=== PATIENT | female | born 1990 | race Caucasian/White ===

== ENCOUNTER 2025-01-11 | Outpatient (REF) | payer OTHER, SELFPAY ==
--- OUTSIDE RECORDS SUMMARY | 2025-01-11 13:30 | XMS_ITS | Encounter Summary ---
Author Organization [facility] Address [address] [place] [address] Care Team Providers Care Emt/Dispatcher Name Role Phone Unavailable Primary Care Provider Unavailabl e Reason for Visit * ReasonCommentsPre-op Visit Encounter Details DateTypeDepartmentCare Team (Latest Contact Info)Xyhteplydzq18/15/2025 1:30 PM EDTProcedure Visit [facility] [address] [place] [address] Chinmay Means DO [address] [place] [address] DUB (dysfunctional uterine bleeding); Menorrhagia with irregular cycle; Pelvic pain in female Social History Tobacco UseTypesPacks/DayYears UsedDateSmoking Tobacco: Every DayCigarettes Smokeless Tobacco: NeverAlcohol UseStandard Drinks/WeekCommentsYes0 (1 standard drink = 0.6 oz pure alcohol)CommentsNoSex and Gender InformationValue Date RecordedSex Assigned at BirthNot on fileLegal ObsKglybf11/15/2023 10:13 PM EDTGender IdentityNot on fileSexual OrientationNot on filedocumented as of this encounter Last Filed Vital Signs Vital SignReadingTime TakenCommentsBlood Gpvraiiy696/8201/11/2025 1:51 PM EDT Pulse--Temperature--Respiratory Rate--Oxygen Saturation--Inhaled Oxygen Concentration--Haybep67 kg (167 lb 8 oz)01/11/2025 1:51 PM EDTHeight--Body Mass Index--documented in this encounter Progress Notes * Karen Huff LPN - 01/11/2025 1:30 PM EDTAssociated Order(s): Endometrial biopsy Post-Procedure Diagnose(s): DUB (dysfunctional uterine bleeding); Menorrhagia with irregular cycle Reason for Appointment: Patient ID: Alma Reveles is a 34 y.o. female who presents for No chief complaint on file. Patient presents today for a Endometrial Biopsy and Pre Op/Endometrial Biopsy appointment. Patient is scheduled to undergo Endometrial Ablation with Dorys on 02/10/[address] Means at [facility]. appointment. MEDICATIONS Current Outpatient Medications Medication Instructions ALPRAZolam (Xanax) 0.5 MG tablet TAKE 1 TABLET BY MOUTH 3 TIMES DAILY NEEDED FOR SLEEP OR ANXIETY. ferrous sulfate 325 (65 Fe) MG tablet 1 tablet, Daily phentermine (ADIPEX-P) 37.5 mg, Daily before breakfast ALLERGIES Allergies[1] PROBLEMS Active Ambulatory Problems Diagnosis Date Noted Neck pain 01/02/2023 DUB (dysfunctional uterine bleeding) 01/11/2025 Pelvic pain in female 01/11/2025 Menorrhagia with irregular cycle 01/11/2025 Resolved Ambulatory Problems Diagnosis Date Noted No Resolved Ambulatory Problems Past Medical History: Diagnosis Date Anxiety Chronic back pain HISTORY PAST MEDICAL HISTORY SOCIAL HISTORY Medical History[2] Social History Tobacco Use Smoking status: Every Day Current packs/day: 0.50 Types: Cigarettes Smokeless tobacco: Never Substance Use Topics Alcohol use: Yes Drug use: Never FAMILY HISTORY Family History[3] SURGICAL HISTORY Surgical History[4] REVIEW OF SYSTEMS Review of Systems: Review of Systems Constitutional: Negative. HENT: Negative. Eyes: Negative. Respiratory: Negative. Cardiovascular: Negative. Gastrointestinal: Negative. Genitourinary: Positive for menstrual problem and pelvic pain. Musculoskeletal: Negative. Skin: Negative. Neurological: Negative. All other systems reviewed and are negative. Hematological: Negative. Endocrine: Negative. Allergic/Immunologic: Negative. OBJECTIVE Objective: Physical Exam Constitutional: Appearance: Normal appearance. She is well-developed. Genitourinary: Vulva normal. Cardiovascular: Rate and Rhythm: Normal rate and regular rhythm. Pulmonary: Effort: Pulmonary effort is normal. Breath sounds: Normal breath sounds. Abdominal: General: Bowel sounds are normal. There is no distension. Palpations: Abdomen is soft. Tenderness: There is no abdominal tenderness. There is no guarding or rebound. Musculoskeletal: General: No swelling. Normal range of motion. Right lower leg: No edema. Left lower leg: No edema. Neurological: Mental Status: She is alert and oriented to person, place, and time. Skin: General: Skin is warm and dry. Psychiatric: Mood and Affect: Mood normal. Behavior: Behavior normal. Vitals and nursing note reviewed. Exam conducted with a proposal writer present. Vitals: There is no height or weight on file to calculate BMI. BP: No LMP recorded. ASSESSMENT & PLAN Assessment/Plan Encounter Diagnosis: ICD-10-CM 1. DUB (dysfunctional uterine bleeding) N93.8 2. Menorrhagia with irregular cycle N92.1 3. Pelvic pain in female R10.20 Endometrial biopsy Date/Time: 01/11/2025 2:11 PM Performed by: Chinmay Means DO Authorized by: Chinmay Means DO Consent: Consent obtained: written Consent given by: patient Risks discussed: bleeding Alternatives discussed: alternative treatment Patient agrees, verbalizes understanding, and wants to proceed: yes Indications: Indications: abnormal uterine bleeding Pre-procedure: Urine test: negative Procedure: A bimanual exam was performed: no Tenaculum used: yes A local block was performed: no Local anesthetic: none Findings: Cervix: normal Specimen collected: specimen collected and sent to pathology Patient tolerance: tolerated well, no immediate complications EMBX: Patient was placed in dorsal lithotomy position with feet in stirrups. A sterile speculum was placed into the vagina and the cervix was visualized. The cervix was grasped with a single tooth tenaculum. The endometrial pipette was placed through the cervix into the uterus, endometrial curettage was performed and sampling was obtained, endometrial curettings were placed in formalin, and single tooth tenaculum was removed. Excellent hemostasis was assured. All instruments were removed from vagina. Pre Op: Patient is doing well but has complaints of bleeding and pelvic pain. Patient has tried hormone therapy in the past but all attempts to subside patients issues have failed. I have discussed conservative management vs. surgical management with the patient in detail and patient desires surgical management at this time. Patient will undergo Endometrial Ablation with Dorys on 02/10/2025. Surgical consents were signed, mmc was reviewed, and patient is to proceed to [facility] OR. Follow Up: Patient is to follow up between 1-2 weeks post op to assess proper healing and recovery from procedure. Documented by Karen Huff LPN on behalf of: Chinmay Means DO [1] Allergies Allergen Reactions Diclofenac Hallucinations Ketorolac Naproxen Tramadol Unknown [2] Past Medical History: Diagnosis Date Anxiety Chronic back pain [3] Family History Problem Relation Name Age of Onset Throat cancer Mother Anxiety disorder Mother [4] Past Surgical History: Procedure Laterality Date CYST REMOVAL chest TUBAL LIGATION documented in this encounter Plan of Treatment DateTypeDepartmentCare Team (Latest Contact Info)Ylprqpcyhhk01/24/2025 1:30 PM ESTOffice Visit [facility] [address] [place] [address] Meagan Cedeno PA [address] [place] [address] NameTypePriorityAssociated DiagnosesOrder ScheduleTissue examPathology and CytologyRoutine DUB (dysfunctional uterine bleeding) Menorrhagia with irregular cycle Pelvic pain in female Ordered: 01/11/2025documented as of this encounter Procedures Procedure NamePriorityDate/TimeAssociated DiagnosisCommentsENDOMETRIAL BIOPSY Ykfvdld0201/11/2025 2:11 PM EDT DUB (dysfunctional uterine bleeding) Menorrhagia with irregular cycle POCT , ANBKFHcmezlz35/15/2025 2:01 PM EDT DUB (dysfunctional uterine bleeding) Menorrhagia with irregular cycle Pelvic pain in female documented in this encounter Results * Endometrial biopsy (01/11/2025 2:11 PM EDT) Ashwini Butcher LPN - 01/11/2025 2:11 PM EDT Ashwini Duncan LPN 01/11/2025 2:54 PM Endometrial biopsy Date/Time: 01/11/2025 2:11 PM Performed by: Chinmay Means DO Authorized by: Chinmay Means DO ?? Consent: ??Consent obtained: written ??Consent given by: patient ??Risks discussed: bleeding ??Alternatives discussed: alternative treatment ??Patient agrees, verbalizes understanding, and wants to proceed: yes ?? Indications: ??Indications: abnormal uterine bleeding ?? Pre-procedure: ??Urine test: negative ?? Procedure: ??A bimanual exam was performed: no ?Tenaculum used: yes ?A local block was performed: no ?Local anesthetic: none Findings: ??Cervix: normal ?Specimen collected: specimen collected and sent to pathology ?Patient tolerance: tolerated well, no immediate complications Authorizing ProviderResult TypeResult StatusChinmay ANGLINN CLINIC/BEDSIDE ORDERABLESFinal Result * POCT , urine manually resulted (01/11/2025 2:01 PM EDT)ComponentValue Ref RangeTest MethodAnalysis TimePerformed AtPathologist SignaturePreg Test, UrNegativeNegativeSpecimen (Source)Anatomical Location / LateralityCollection Method / VolumeCollection TimeReceived ZnntNeqft19/15/2025 2:01 PM EDT Narrative Authorizing ProviderResult TypeResult StatusChinmay Means DOPOINT OF CARE TEST ENTER/EDIT ORDERABLESFinal Result documented in this encounter Visit Diagnoses Diagnosis DUB (dysfunctional uterine bleeding) Other disorder of menstruation and other abnormal bleeding from female genital tract Menorrhagia with irregular cycle Pelvic pain in female Unspecified symptom associated with female genital organs documented in this encounter
--- OUTSIDE RECORDS SUMMARY | 2025-01-17 11:30 | XMS_ITS | Encounter Summary ---
Author Organization [facility] Address [address] [place] [address] Care Team Providers Care Paleobotanist Name Role Phone Unavailable Primary Care Provider Unavailabl e Encounter Details DateTypeDepartmentCare Team (Latest Contact Info)Svydfpjecsm36/14/2025External Result Encounter [facility] External Department Unsolicited Chinmay Means DO [address] [place], [place] [id number] Social History Tobacco UseTypesPacks/DayYears UsedDateSmoking Tobacco: Every DayCigarettes Smokeless Tobacco: NeverAlcohol UseStandard Drinks/WeekCommentsYes0 (1 standard drink = 0.6 oz pure alcohol)CommentsNoSex and Gender InformationValue Date RecordedSex Assigned at BirthNot on fileLegal GvtZhryzy22/15/2023 10:13 PM EDTGender IdentityNot on fileSexual OrientationNot on filedocumented as of this encounter Plan of Treatment DateTypeDebaptist health rehabilitation instituteCare Team (Latest Contact Info)Ugmdezyoapf85/24/2025 1:30 PM ESTOffice Visit [facility] [address] [place] [phone] Meagan Cedeno PA [address] [place] [address] documented as of this encounter Procedures Procedure NamePriorityDate/TimeAssociated DiagnosisComments DEHYDROEPIANDROSTERONE, PXcetbhy19/14/2025 9:16 AM EDT SERUM B HCG, 3RD I.S. ([facility])Pmxbxqc9201/10/2025 9:16 AM EDT CBC WITH AUTO BPXAWGUZAMWJSdlsmlu76/ 9:16 AM EDT DHEA BOPSIFFRrqnqxn05/14/2025 9:16 AM EDT ZJVVkzkhgr70/14/2025 9:16 AM EDT HEMOGLOBIN I7JLqsncxf06/14/2025 9:16 AM EDT DFSswwkxx18/14/2025 9:16 AM EDT DXNHegfmza61/14/2025 9:16 AM EDT documented in this encounter Results * DEHYDROEPIANDROSTERONE, S (01/10/2025 9:16 AM EDT)ComponentValueRef RangeTest MethodAnalysis TimePerformed AtPathologist SignatureDEHYDROEPIANDROSTERONE, S 3.4<10 ng/mLPROMEDICAComment: ADDITIONAL INFORMATION This test was developed and its performance characteristics determined by [facility] in a manner consistent with CLIA requirements. This test has not been cleared or approved by the U.S. Food and Drug Administration. Test Performed by: [place] [address] Twist Packer: Ever Francis Ph.D.; CLIA# [id number] Specimen (Source)Anatomical Location / LateralityCollection Method / Volume Collection TimeReceived Time01/10/2025 9:16 AM EDT1 1:14 PM EDT Narrative Authorizing ProviderResult TypeResult StatusCorey Clary DOLAB BLOOD ORDERABLES Final ResultPerforming OrganizationAddressCity/State/ZIP CodePhone Number [facility] * Hemoglobin A1c (01/10/2025 9:16 AM EDT)ComponentValueRef RangeTest Method Analysis TimePerformed AtPathologist SignatureHEMOGLOBIN A1C4.84.4 - 5.6 % [facility]: ?ADA Guidelines ?Result ?HgbA1c ? Normal : ? less than 5.7 % ? Prediabetes : ?5.7 % ??to 6.4 % Diabetes : > 6.4 % ??Use with caution in patients with abnormal hemoglobin variants as ??the half-life of red blood cells and in vivo glycation rates are ??affected. AVERAGE JOLVQCZ90fk/dLPROMEDICAComment: ?? PERFORMED AT [address],[place] [address] Specimen (Source)Anatomical Location / LateralityCollection Method / Volume Collection TimeReceived Time01/10/2025 9:16 AM EDT1 1:14 PM EDT Narrative Authorizing ProviderResult TypeResult StatusCorey Clary DOLAB BLOOD ORDERABLES Final ResultPerforming OrganizationAddressCity/State/[facility] CodePhone Number [facility] * Luteinizing hormone (01/10/2025 9:16 AM EDT)ComponentValueRef RangeTest Method Analysis TimePerformed AtPathologist SignatureLUTEINIZING HHACUKU75.0mIU/mL [facility]: NORMAL FEMALE Follicular ?? 2.1-10.9 ??mIU/mL Mid Cycle ??19.2-103 ?? mIU/mL Luteal ?? 1.2-12.9 ??mIU/mL [place] ??10.9-58.6 ??mIU/mL ?? PERFORMED AT [address],[place] [address] Specimen (Source)Anatomical Location / LateralityCollection Method / Volume Collection TimeReceived Time01/10/2025 9:16 AM EDT1 1:14 PM EDT Narrative Authorizing ProviderResult TypeResult StatusCorey Clary DOLAB BLOOD ORDERABLES Final ResultPerforming OrganizationAddressCity/State/ZIP CodePhone Number [facility] * Follicle stimulating hormone (01/10/2025 9:16 AM EDT)ComponentValueRef Range Test MethodAnalysis TimePerformed AtPathologist SignatureFOLLICLE STIM HORMONE 8.3mIU/mLPROMEDICAComment: NORMAL FEMALE: Luteal ??1.8-5.1 ?mIU/mL Follicular ??3.8-8.8 ?mIU/mL Mid Cycle ??4.5-22.5 ?? mIU/mL [place] ??16.7-113.6 ??mIU/mL ?? PERFORMED AT [address],[place] [address] Specimen (Source)Anatomical Location / LateralityCollection Method / Volume Collection TimeReceived Time01/10/2025 9:16 AM EDT1 1:14 PM EDT Narrative Authorizing ProviderResult TypeResult StatusCorey Clary DOLAB BLOOD ORDERABLES Final ResultPerforming OrganizationAddressCity/State/ZIP CodePhone Number [facility] * TSH (01/10/2025 9:16 AM EDT)ComponentValueRef RangeTest MethodAnalysis Time Performed AtPathologist SignatureFREE T41.100.61 - 1.60 ng/dLPROMEDICATSH1.26 0.49 - 4.67 uIU/mLPROMEDICAComment: ?? PERFORMED AT [address],[place] [address] Specimen (Source)Anatomical Location / LateralityCollection Method / Volume Collection TimeReceived Time01/10/2025 9:16 AM EDT1 1:14 PM EDT Narrative Authorizing ProviderResult TypeResult StatusCorey Clary DOLAB BLOOD ORDERABLES Final ResultPerforming OrganizationAddressCity/State/ZIP CodePhone Number [facility] * DHEA-sulfate (01/10/2025 9:16 AM EDT)ComponentValueRef RangeTest Method Analysis TimePerformed AtPathologist SignatureDHEA A12970 - 266 ug/dL[facility] Comment: ?? PERFORMED AT [facility] [address],[place] [address] Specimen (Source)Anatomical Location / LateralityCollection Method / Volume Collection TimeReceived Time01/10/2025 9:16 AM EDT1 1:14 PM EDT Narrative Authorizing ProviderResult TypeResult StatusCorey Clary DOLAB BLOOD ORDERABLES Final ResultPerforming OrganizationAddressCity/State/ZIP CodePhone Number [facility] * SERUM B HCG, 3RD I.S. ([facility]) (01/10/2025 9:16 AM EDT)ComponentValueRef RangeTest MethodAnalysis TimePerformed AtPathologist SignatureSERUM B HCG, 3RD I.S.<5mIU/mLPROMEDICAComment: WEEKS (SINCE LMP) ? MIU/mL 3 WEEKS ?5 - 50 4 WEEKS ?5 - 426 5 WEEKS ?18 - 7,340 6 WEEKS ?1,080 - 56,500 7-8 WEEKS ?7,650 - 229,000 9-12 WEEKS ? 25,700 - 288,000 13-16 WEEKS ?13,300 - 254,000 17-24 WEEKS ?4,060 - 165,400 25-40 WEEKS ?3,640 - 117,000 MALES AND NON- FEMALES - <5 MIU/mL This test has been FDA approved for use in only. ??Elevated levels are not necessarily diagnostic for trophoblastic or nontrophoblastic neoplasms. ?? PERFORMED AT [facility] [address],[place] [address] Specimen (Source)Anatomical Location / LateralityCollection Method / Volume Collection TimeReceived Time01/10/2025 9:16 AM EDT1 1:14 PM EDT Narrative Authorizing ProviderResult TypeResult StatusCorey Clary DOLAB BLOOD ORDERABLES Final ResultPerforming OrganizationAddressCity/State/ZIP CodePhone Number [facility] * (ABNORMAL) CBC auto differential (01/10/2025 9:16 AM EDT)ComponentValueRef RangeTest MethodAnalysis TimePerformed AtPathologist SignatureWHITE BLOOD CELL COUNT, WBC10.14 - 11 x10E9/LPROMEDICARED BLOOD CELL COUNT, RBC4.583.8 - 5.2 X10E12/BZRQQWBPURVZKHRIQGNJ79.911.7 - 15.5 g/iFWWBTZLWYDCOCHLVEKRT22.335 - 47 %[facility]ICAMEAN CELL VOLUME, MJH3638 - 100 fLPROMEDICAMEAN CELL HEMOGLOBIN, MCH 32.527 - 34 pgPROMEDICAMEAN CELL HEMOGLOGIN CONCENTRATION, MCHC34.432 - 36 g/dLPROMEDICARED CELL DISTRIBUTION WIDTH, RDW14.411.5 - 15 %[facility]ICAPLATELET [id number] - 450 X10E9/LPROMEDICAMEAN PLATELET VOLUME, MPV9.57 - 12 fL [facility]% BMWZTPMYZBC08.9%[facility]% WTBEICYLLUQ12.8%[facility]% MONOCYTES8.2% [facility]% EOSINOPHILS1.5%[facility]% BASOPHILS0.6%PROMEDICAABSOLUTE NEUTROPHIL 7.3(H)1.5 - 6.6 10*3/uLPROMEDICAABSOLUTE LYMPHOCYTE1.71.0 - 3.5 10*3/uL PR[facility]ICAABSOLUTE MONOCYTE0.80.0 - 0.9 10*3/uLPROMEDICAABSOLUTE EOSINOPHIL0.2 0.0 - 0.4 10*3/uLPROMEDICAABSOLUTE BASOPHIL0.10.0 - 0.2 10*3/uLPROMEDICA DIFFERENTIAL TYPEAUTOMATED DIFFERENTIALPROMEDICAComment: ?? PERFORMED AT [facility] [address],[place] [address] The copy-to physician of this order is ZAID Simms Specimen (Source)Anatomical Location / LateralityCollection Method / Volume Collection TimeReceived Time01/10/2025 9:16 AM EDT1 1:14 PM EDT Narrative Authorizing ProviderResult TypeResult StatusCorey Clary DOLAB BLOOD ORDERABLES Final ResultPerforming OrganizationAddressCity/State/ZIP CodePhone Number [facility] documented in this encounter Visit Diagnoses Not on filedocumented in this encounter
--- OUTSIDE RECORDS SUMMARY | 2025-01-17 11:30 | XMS_ITS | Encounter Summary ---
Author Organization [employer] [facility] tem Address [id number] [place] [address] Care Team Providers Care Roadway Designer Name Role Phone Eleazar Benavides MD Primary Care Provider [phone] Encounter Details DateTypeDepartmentCare Team (Latest Contact Info)Lymmtlftbih48/14/2025Travel Social History Tobacco UseTypesPacks/DayYears UsedDateSmoking Tobacco: Every DayCigarettes Smokeless Tobacco: NeverAlcohol UseStandard Drinks/WeekCommentsNo0 (1 standard drink = 0.6 oz pure alcohol)AUDIT-CAnswerDate RecordedFrequency of Alcohol RwtfuodedfyRpjjn20/30/2020Average Number of DrinksNot on file12/28/2019Frequency of Binge DrinkingNot on file12/28/2019ChildcareAnswerDate RecordedChildcare Mxkjnnn8909/08/2018EmploymentAnswerDate ZltndpomSdyyxyzldlZhzhuao73/12/2019Hunger ScreeningAnswerDate RecordedWithin the past 12 months we worried whether our food would run out before we got money to buy more.Never True03/21/2024Within the past 12 months the food we bought just didn't last and we didn't have money to get more.Never True4Purpose - LifeAnswerDate RecordedPurpose and direction in zgwpTcnjnoz26/15/2021CommentsNoSex and Gender Information ValueDate RecordedSex Assigned at BirthNot on fileLegal FydNkbyyf87/06/2015 11:38 AM EDTGender IdentityNot on fileSexual OrientationNot on filedocumented as of this encounter Plan of Treatment Not on file documented as of this encounter Visit Diagnoses Not on filedocumented in this encounter Care Teams Team MemberRelationshipSpecialtyStart DateEnd Date Eleazar Benavides MD [address] [place] [address] PCP - GeneralFamily Zleqsqab35/23/24documented as of this encounter
--- OUTSIDE RECORDS SUMMARY | 2025-01-17 11:30 | XMS_ITS | Encounter Summary ---
Author Organization [facility] Address [address] [place] [address] Care Team Providers Care Clinical Nursing Manager Name Role Phone Unavailable Primary Care Provider Unavailabl e Encounter Details DateTypeDepartmentCare Team (Latest Contact Info)Zunelayjxny05/15/2025Telephone [facility] [address] [place] [phone] Chinmay Means DO [address] [place], [place] [id number] Social History Tobacco UseTypesPacks/DayYears UsedDateSmoking Tobacco: Every DayCigarettes Smokeless Tobacco: NeverAlcohol UseStandard Drinks/WeekCommentsYes0 (1 standard drink = 0.6 oz pure alcohol)CommentsNoSex and Gender InformationValue Date RecordedSex Assigned at BirthNot on fileLegal XmrErycfd91/15/2023 10:13 PM EDTGender IdentityNot on fileSexual OrientationNot on filedocumented as of this encounter Miscellaneous Notes * Telephone Encounter - Sita Bowman LPN - 01/11/2025 11:15 AM EDT I was calling to see if you guys got my blood results because if not, I was going to reschedule my appointment. I have one today at 130. Patient was called left detailed message to make aware that we do have her labs that she had done at [facility] so we will see at her appointment or if she needs to change to call the office. documented in this encounter Plan of Treatment DateTypeDepartmentCare Team (Latest Contact Info)Voneqjxurdz34/24/2025 1:30 PM ESTOffice Visit [facility] [address] [place] [phone] Meagan Cedeno PA [address] [place] [address] documented as of this encounter Visit Diagnoses Not on filedocumented in this encounter
--- OUTSIDE RECORDS SUMMARY | 2025-01-17 11:30 | XMS_ITS | Encounter Summary ---
Author Organization [facility] Address [address], [address] [place] [address] Care Team Providers Care System Administration Advisor Name Role Phone Boni Aguilar APRN - COMPUTER PROCESSING SCHEDULER Primary Care Provider Reason for Visit * ReasonOnset DateCommentsMedication Svzvgf7901/09/2025 Encounter Details DateTypeDepartmentCare Team (Latest Contact Info)Pkwpkdqtyoh02/13/2025[facility] [place] [address] Boni Aguilar, ROLLED GLASS CROSSCUTTER [facility] [place], [place] [id number] Medication Refill Social History Tobacco UseTypesPacks/DayYears UsedDateSmoking Tobacco: Every LifSobifmhhjl01 Smokeless Tobacco: Never Comments:Patient has decreas ed smoking usage Alcohol UseStandard Drinks/WeekCommentsNot Currently0 (1 standard drink = 0.6 oz pure alcohol)[facility] UtilitiesAnswerDate RecordedIn the past 12 months has the electric, gas, oil, or water company threatened to shut off services in your home?No05/17/2024Overall Financial Resource Strain (CARDIA)AnswerDate Recorded How hard is it for you to pay for the very basics like food, housing, medical care, and heating?Not hard at all05/04/2023HQ-2AnswerDate RecordedPHQ-9 Total Qkayx690Hunger Vital SignAnswerDate RecordedWithin the past 12 months, you worried that your food would run out before you got the money to buymore. Never true05/17/2024Within the past 12 months, the food you bought just didn't last and you didn't have money to get more.Never true05/17/2024PRAPARE - TransportationAnswerDate RecordedIn the past 12 months, has lack of transportation kept you from medical appointments or from getting medications?No 05/17/2024In the past 12 months, has lack of transportation kept you from meetings, work, or from getting things needed for daily living?No05/17/2024 Housing Stability Vital SignAnswerDate RecordedUnable to Pay for Housing in the Last YearNot on file05/04/2023Number of Places Lived in the Last YearNot on file 05/04/2023In the last 12 months, was there a time when you did not have a steady place to sleep or slept in [place] (including now)?No05/04/2023Housing Stability Vital SignAnswerDate RecordedIn the last 12 months, was there a time when you were not able to pay the mortgage or rent on time?No05/17/2024In the past 12 months, how many times have you moved where you were living? At any time in the past 12 months, were you homeless or living in a [place] (including now)?No05/17/2024Food InsecurityAnswerDate RecordedWithin the past 12 months, you worried that your food would run out before you got the money to buy more.Within the past 12 months, the food you bought just didn't last and you didn't have money to get more.CommentsNoSex and Gender InformationValueDate RecordedSex Assigned at BirthNot on fileLegal Sex Sslkdb8105/09/2012 4:09 PM ESTGender IdentityNot on fileSexual OrientationNot on filedocumented as of this encounter Plan of Treatment Not on file documented as of this encounter Visit Diagnoses Diagnosis Medication management Encounter for other specified aftercare Anxiety Anxiety state, unspecified Chronic bilateral low back pain without sciatica documented in this encounter Care Teams Team MemberRelationshipSpecialtyStart DateEnd Date Boni Aguilar, ROLLED GLASS CROSSCUTTER - COMPUTER PROCESSING SCHEDULER PCP - General05/19/18documented as of this encounter
--- OUTSIDE RECORDS SUMMARY | 2025-01-17 11:30 | XMS_ITS | Clinical Summary ---
Author Organization [facility] Address [address] [place] [address] Care Team Providers Care Epitaxial Reactor Technician Name Role Phone Unavailable Primary Care Provider Unavailabl e Allergies Active AllergyReactionsCriticalityNoted DateCommentsDiclofenacHallucinations 05/17/20249041Uegrmkyho14/09/7406Utfdfsoq96/19/2171LxirqjliPacjvlu75/01/2011 Medications MedicationSigDispense QuantityRefillsLast FilledStart DateEnd DateStatus ALPRAZolam (Xanax) 0.5 MG tablet TAKE 1 TABLET BY MOUTH 3 TIMES DAILY NEEDED FOR SLEEP OR ANXIETY.Active ferrous sulfate 325 (65 Fe) MG tablet Take 1 tablet by mouth Daily5Active phentermine (Adipex-P) 37.5 MG tablet Take 37.5 mg by mouth in the morning. Take before meals.5Active Active Problems ProblemNoted DateDiagnosed DateDUB (dysfunctional uterine bleeding)01/11/2025 Pelvic pain in wjjdtz1801/11/2025Menorrhagia with irregular cycle01/11/2025Neck pain01/02/2023 Encounters DateTypeDepartmentCare TnsdPqjvbwsegmn83/15/2025 1:30 PM EDTProcedure Visit [facility] [address] [place] [address] [place] [address] Chinmay Means DO DUB (dysfunctional uterine bleeding); Menorrhagia with irregular cycle; Pelvic pain in jqvwrz5001/11/2025Telephone [facility] [address] [place] [address] [place] [address] Chinmay Means DO 01/10/2025External Result Encounter [facility] Unsolicited Chinmay Means DO 12/06/2024 10:30 AM EDTConsult [facility] [address] [place] [address] Chinmay Means DO DUB (dysfunctional uterine bleeding); Dysmenorrhea; Menorrhagia with irregular cycle; PCOS (polycystic ovarian syndrome)12/06/2024amboo flowsheet [facility] [address] [place] [address] Chinmay Means DO 10/19/2024Orders Only [facility] [address] [place] [address] Mila Arnold CNM DUB (dysfunctional uterine bleeding) (Primary Dx)10/17/2024Results Follow-Up [facility] [address] [place] [address] Jacinta Monge MA THINPREP IMAGING PAP AND HPV DNA REFLEX HPV 16,18, US pelvis transvaginalfrom Last 3 Months Family History Medical HistoryRelationNameCommentsAnxiety disorderMotherThroat cancerMother RelationNameStatusCommentsFatherAliveMotherAlive Social History Tobacco UseTypesPacks/DayYears UsedDateSmoking Tobacco: Every DayCigarettes Smokeless Tobacco: Never Tobacco Cessation:Ready to Q uit: Not Asked; Counseling Given: Not Answered Alcohol UseStandard Drinks/WeekCommentsYes0 (1 standard drink = 0.6 oz pure alcohol)CommentsNoSex and Gender InformationValueDate RecordedSex Assigned at BirthNot on fileLegal ZxgQmwwrg54/15/2023 10:13 PM EDTGender IdentityNot on fileSexual OrientationNot on file Last Filed Vital Signs Vital SignReadingTime TakenCommentsBlood Dxitssjh554/8201/11/2025 1:51 PM EDT Pulse--Temperature--Respiratory Rate--Oxygen Saturation--Inhaled Oxygen Concentration--Ppshmh93 kg (167 lb 8 oz)01/11/2025 1:51 PM EDTHeight--Body Mass Index-- Plan of Treatment DateTypeDepartmentCare Team (Latest Contact Info)Whpmmqolmlf39/24/2025 1:30 PM ESTOffice Visit [facility] [address] [place] [address] Meagan Cedeno PA [address] [place] [address] Procedures Procedure NamePriorityDate/TimeAssociated DiagnosisCommentsENDOMETRIAL BIOPSY Lurdplx0001/11/2025 2:11 PM EDT DUB (dysfunctional uterine bleeding) Menorrhagia with irregular cycle POCT , OZIKROfpzkir36/15/2025 2:01 PM EDT DUB (dysfunctional uterine bleeding) Menorrhagia with irregular cycle Pelvic pain in female DEHYDROEPIANDROSTERONE, CQionwba99/14/2025 9:16 AM EDT HEMOGLOBIN C2BSimkzjw30/14/2025 9:16 AM EDT NZGghzdcv44/14/2025 9:16 AM EDT WKYElnmnfz97/14/2025 9:16 AM EDT QKDMnbntxk21/14/2025 9:16 AM EDT DHEA DIVRYGNEnfmncm33/14/2025 9:16 AM EDT SERUM B HCG, 3RD I.S. ([facility])Debctqc8901/10/2025 9:16 AM EDT CBC WITH AUTO CSUANKRWVQYVFjqnefc13/14/2025 9:16 AM EDT from Last 3 Months Results * Endometrial biopsy (01/11/2025 2:11 PM EDT) Ashwini Butcher LPN - 01/11/2025 2:11 PM EDT Ashwini Duncan LPN 01/11/2025 2:54 PM Endometrial biopsy Date/Time: 01/11/2025 2:11 PM Performed by: Chinmay Means DO Authorized by: Chinmya Means DO ?? Consent: ??Consent obtained: written [...] no immediate complications Authorizing ProviderResult TypeResult StatusChinmay Means DOIN CLINIC/BEDSIDE ORDERABLESFinal Result * POCT , urine manually resulted (01/11/2025 2:01 PM EDT)ComponentValue Ref RangeTest MethodAnalysis TimePerformed AtPathologist SignaturePreg Test, UrNegativeNegativeSpecimen (Source)Anatomical Location / LateralityCollection Method / VolumeCollection TimeReceived KhdyJrpor05/15/2025 2:01 PM EDT Narrative Authorizing ProviderResult TypeResult StatusChinmay Means DOPOINT OF CARE TEST ENTER/EDIT ORDERABLESFinal Result * DEHYDROEPIANDROSTERONE, S (01/10/2025 9:16 AM EDT)ComponentValueRef RangeTest MethodAnalysis TimePerformed AtPathologist SignatureDEHYDROEPIANDROSTERONE, S 3.4<10 ng/mLPROMEDICAComment: ADDITIONAL INFORMATION This test was developed and its performance characteristics determined by [facility] in a manner consistent with CLIA requirements. This test has not been cleared or approved by the U.S. Food and Drug Administration. Test Performed by: [facility] - [address] [address] [employer] Operator: Ever Francis Ph.D.; CLIA# [id number] Specimen (Source)Anatomical Location / LateralityCollection Method / Volume Collection TimeReceived Time01/10/2025 9:16 AM EDT1 1:14 PM EDT Narrative Authorizing ProviderResult TypeResult StatusCorey Clary HEARD BLOOD ORDERABLES Final ResultPerforming OrganizationAddressCity/State/ZIP CodePhone Number [...] trophoblastic or nontrophoblastic neoplasms. ?? PERFORMED AT [facility] [address],[place] [address] Specimen (Source)Anatomical Location / LateralityCollection Method / Volume Collection TimeReceived Time01/10/2025 9:16 AM EDT1 1:14 PM EDT Narrative Authorizing ProviderResult TypeResult StatusCorey Clary HEARD BLOOD ORDERABLES Final ResultPerforming OrganizationAddressCity/State/ZIP CodePhone Number [facility] * (ABNORMAL) CBC auto differential (01/10/2025 9:16 AM EDT)ComponentValueRef RangeTest MethodAnalysis TimePerformed AtPathologist SignatureWHITE BLOOD CELL COUNT, WBC10.14 - 11 x10E9/LPROMEDICARED BLOOD CELL COUNT, RBC4.583.8 - 5.2 X10E12/KIEDZRLULWGZPPGTUIRW45.911.7 - 15.5 g/tMDJZWSNQPKCOGKJEUMUS36.335 - 47 %PROMEDICAMEAN CELL VOLUME, SWO5718 - 100 fLPROMEDICAMEAN CELL HEMOGLOBIN, MCH 32.527 - 34 pgPROMEDICAMEAN CELL HEMOGLOGIN CONCENTRATION, MCHC34.432 - 36 g/dLPROMEDICARED CELL DISTRIBUTION WIDTH, RDW14.411.5 - 15 %PROMEDICAPLATELET KUNWX360945 - 450 X10E9/LPROMEDICAMEAN PLATELET VOLUME, MPV9.57 - 12 fL [facility]% YSBOILOSTHX81.9%[facility]% TWCEYJMXJBE02.8%[facility]% MONOCYTES8.2% [facility]% EOSINOPHILS1.5%[facility]% BASOPHILS0.6%PROMEDICAABSOLUTE NEUTROPHIL 7.3(H)1.5 - 6.6 10*3/uLPROMEDICAABSOLUTE LYMPHOCYTE1.71.0 - 3.5 10*3/uL [facility]AABSOLUTE MONOCYTE0.80.0 - 0.9 10*3/uLPROMEDICAABSOLUTE EOSINOPHIL0.2 0.0 - 0.4 10*3/uLPROMEDICAABSOLUTE BASOPHIL0.10.0 - 0.2 10*3/uLPROMEDICA DIFFERENTIAL TYPEAUTOMATED DIFFERENTIALPROMEDICAComment: ?? PERFORMED AT [facility] [address],[place] [address] The copy-to physician of this order is ZAID Simms Specimen (Source)Anatomical Location / LateralityCollection Method / Volume Collection TimeReceived Time01/10/2025 9:16 AM EDT1 1:14 PM EDT Narrative Authorizing ProviderResult TypeResult StatusCorey Clary DOLAB BLOOD ORDERABLES Final ResultPerforming OrganizationAddressCity/State/ZIP CodePhone Number [facility] * DHEA-sulfate (01/10/2025 9:16 AM EDT)ComponentValueRef RangeTest Method Analysis TimePerformed AtPathologist SignatureDHEA [id number] - 266 ug/dL[facility]ICA Comment: ?? PERFORMED AT [address],[place] [address] Specimen (Source)Anatomical Location / LateralityCollection Method / Volume Collection TimeReceived Time01/10/2025 9:16 AM EDT1 1:14 PM EDT Narrative Authorizing ProviderResult TypeResult StatusCorey Clary DOLAB BLOOD ORDERABLES Final ResultPerforming OrganizationAddressCity/State/ZIP CodePhone Number [facility] * TSH (01/10/2025 9:16 AM EDT)ComponentValueRef RangeTest MethodAnalysis Time Performed AtPathologist SignatureFREE T41.100.61 - 1.60 ng/dLPROMEDICATSH1.26 0.49 - 4.67 uIU/mLPROMEDICAComment: ?? PERFORMED AT [address],[place] [address] Specimen (Source)Anatomical Location / LateralityCollection Method / [...] in vivo glycation rates are ??affected. AVERAGE SYZNBJQ31bv/dLPROMEDICAComment: ?? [address]FORMED [address],[place] [address] Specimen (Source)Anatomical Location / LateralityCollection Method / Volume Collection TimeReceived Time01/10/2025 9:16 AM EDT1 1:14 PM EDT Narrative Authorizing ProviderResult TypeResult StatusCorey Clary DOLAB BLOOD ORDERABLES Final ResultPerforming OrganizationAddressCity/State/ZIP CodePhone Number [facility] * Luteinizing hormone (01/10/2025 9:16 AM EDT)ComponentValueRef RangeTest Method Analysis TimePerformed AtPathologist SignatureLUTEINIZING LJGXXDY10.0mIU/mL [facility]ICAComment: NORMAL FEMALE Follicular ?? 2.1-10.9 ??mIU/mL Mid Cycle ??19.2-103 ?? mIU/mL Luteal ?? 1.2-12.9 ??mIU/mL Post Gabby ??10.9-58.6 ??mIU/mL ?? PERFORMED AT [place] [address],[place] [address] Specimen (Source)Anatomical Location / LateralityCollection Method / Volume Collection TimeReceived Time01/10/2025 9:16 AM EDT1 1:14 PM EDT Narrative Authorizing ProviderResult TypeResult StatusCorey Clary DOLAB BLOOD ORDERABLES Final ResultPerforming OrganizationAddressCity/State/ZIP CodePhone Number [facility] * Follicle stimulating hormone (01/10/2025 9:16 AM EDT)ComponentValueRef Range Test MethodAnalysis TimePerformed AtPathologist SignatureFOLLICLE STIM HORMONE 8.3mIU/mLPROMEDICAComment: NORMAL FEMALE: Luteal ??1.8-5.1 ?mIU/mL Follicular ??3.8-8.8 ?mIU/mL Mid Cycle ??4.5-22.5 ?? mIU/mL Post Gabby ??16.7-113.6 ??mIU/mL ?? PERFORMED AT [facility] [address],[place] [address] Specimen (Source)Anatomical Location / LateralityCollection Method / Volume Collection TimeReceived Time01/10/2025 9:16 AM EDT1 1:14 PM EDT Narrative Authorizing ProviderResult TypeResult StatusCorey Clary DOLAB BLOOD ORDERABLES Final ResultPerforming OrganizationAddressCity/State/ZIP CodePhone Number [facility] from Last 3 Months Insurance
--- OUTSIDE RECORDS SUMMARY | 2025-01-17 11:30 | XMS_ITS | Clinical Summary ---
Author Organization [facility] Address [address] [facility], [address] [place] [address] Care Team Providers Care Tobacco Hanger Name Role Phone Boni Aguilar METAL MOULDER - MICROBIOLOGY LAB TECHNICIAN Primary Care Provider Allergies Active AllergyReactionsCriticalityNoted DateCommentsDiclofenacHallucinations 05/17/20240428Yvgnsritf98/09/1147Qtvvotju77/19/2015TramadolOther (See Comments) 03/30/2010 Medications MedicationSigDispense QuantityRefillsLast FilledStart DateEnd DateStatus varenicline (CHANTIX) 1 MG tablet Indications:Cigarette nicotine dependence without complicationTake 1 tablet by mouth 2 times daily 60 tablet 504Active polyethylene glycol (MIRALAX) 17 GM/SCOOP powder Indications:Constipation, unspecified constipation typeTake 17 g by mouth daily 510 g 4Active albuterol sulfate HFA (PROVENTIL;VENTOLIN;PROAIR) 108 (90 Base) MCG/ACT inhaler Inhale 2 puffs into the lungs every 6 hours as needed for Mbootszg87/04/2024 Active oxyBUTYnin (DITROPAN-XL) 5 MG extended release tablet Indications:Urinary urgencyTAKE 1 TABLET BY MOUTH EVERY DAY 30 tablet 5Active albuterol (PROVENTIL) (2.5 MG/3ML) 0.083% nebulizer solution Indications:Bronchitis,WheezeINAHEL 3 MLS BY NEBULIZATION EVERY 4 HOURS NEEDED FOR WHEEZING OR SHORTNESS OF BREATH 300 mL 5Active ferrous sulfate (IRON 325) 325 (65 Fe) MG tablet TAKE 1 TABLET BY MOUTH EVERY DAY 30 tablet 5Active amitriptyline (ELAVIL) 25 MG tablet Indications:Medication managementTAKE 1 TABLET BY MOUTH EVERY DAY AT BEDTIME NEEDED FOR SLEEP 30 tablet 5Active omeprazole (PRILOSEC) 40 MG delayed release capsule Indications:Gastroesophageal reflux disease without esophagitisTAKE 1 CAPSULE BY MOUTH EVERY DAY 30 capsule 5Active phentermine (ADIPEX-P) 37.5 MG tablet Indications:Overweight (BMI 25.0-29.9)TAKE 1 TABLET BY MOUTH EVERY MORNING FOR 30 DAYS. MAX DAILY AMOUNT: 37.5 MG 30 tablet tive ALPRAZolam (XANAX) 1 MG tablet Indications:Medication management,AnxietyTake 1 tablet by mouth 3 times daily as needed for Sleep for up to 30 days. Max Daily Amount: 3 mg 90 tablet tive acetaminophen (TYLENOL) 500 MG tablet Indications:Flank painTake 1 tablet by mouth 4 times daily as needed for Pain 360 tablet iscontinued(Side effects) phentermine (ADIPEX-P) 37.5 MG tablet Indications:Overweight (BMI 25.0-29.9)Take 1 tablet by mouth every morning (before breakfast) for 30 days. Max Daily Amount: 37.5 mg 30 tablet Discontinued HYDROcodone-acetaminophen (NORCO) 5-325 MG per tablet Indications:Chronic bilateral low back pain without sciaticaTake 1 tablet by mouth 2 times daily as needed for Pain for up to 7 days. Intended supply: 7 days. Take lowest dose possible to manage pain Max Daily Amount: 2 tablets 14 tablet /Discontinued(REORDER) ALPRAZolam (XANAX) 1 MG tablet Indications:Medication management,AnxietyTAKE 1 TABLET BY MOUTH THREE TIMES A DAY NEEDED FOR ANXIETY FOR UP TO 30 DAYS 90 tablet /Discontinued(REORDER) HYDROcodone-acetaminophen (NORCO) 5-325 MG per tablet Indications:Chronic bilateral low back pain without sciaticaTake 1 tablet by mouth 2 times daily as needed for Pain for up to 7 days. Intended supply: 7 days. Take lowest dose possible to manage pain Max Daily Amount: 2 tablets 14 tablet /Discontinued(REORDER) HYDROcodone-acetaminophen (NORCO) 5-325 MG per tablet Indications:Chronic bilateral low back pain without sciaticaTake 1 tablet by mouth 2 times daily as needed for Pain for up to 7 days. Intended supply: 7 days. Take lowest dose possible to manage pain Max Daily Amount: 2 tablets 14 tablet /08/2024Discontinued(REORDER) HYDROcodone-acetaminophen (NORCO) 5-325 MG per tablet Indications:Chronic bilateral low back pain without sciaticaTake 1 tablet by mouth 2 times daily as needed for Pain for up to 7 days. Intended supply: 7 days. Take lowest dose possible to manage pain Max Daily Amount: 2 tablets 14 tablet /Discontinued(REORDER) HYDROcodone-acetaminophen (NORCO) 5-325 MG per tablet Indications:Chronic bilateral low back pain without sciaticaTake 1 tablet by mouth 2 times daily as needed for Pain for up to 7 days. Intended supply: 7 days. Take lowest dose possible to manage pain Max Daily Amount: 2 tablets 14 tablet Expired Active Problems ProblemNoted DateDiagnosed DatePersonal history of diseases of the blood and blood-forming organs and certain disorders involving the immune mechanism 07/27/2023Increased frequency of hguiqxttk86/22/2024Neck pain01/02/2023Nicotine dependence, cigarettes, origwckrushrs27/23/2018Bilateral low back pain without yagtovaq91/21/2015Gastroesophageal reflux disease without xjakhefmqgj38/21/2015 Restless leg egwyuoka87/21/2015nxiety Resolved Problems ProblemNoted DateDiagnosed DateResolved DateWeight loss Encounters DateTypeDepartmentCare StwsDgvpvrcpvwx46/15/2025Results Follow-Up [facility] [address] [place] [address] Zulma Young MD 01/11/2025bstract [facility] [address] [facility] [address] [place] [address] Carmina Bell MA Overweight (BMI 25.0-29.9); Insomnia, unspecified type; History of anemia; Medication management; Anxiety; Chronic bilateral low back pain without sciatica; Lipid mqatgxfxy93/13/2025[facility] [address] [place] [address] Boni Aguilar, METAL MOULDER - MICROBIOLOGY LAB TECHNICIAN Medication Qrhcwn1801/09/2025[facility] [address] [place] [address] Boni Aguilar, METAL MOULDER - MICROBIOLOGY LAB TECHNICIAN Medication Cincic7001/02/2025[facility] [address] [place] [address] Boni Aguilar, METAL MOULDER - MICROBIOLOGY LAB TECHNICIAN Medication Peeshc2012/26/2024[facility] [address] [place] [address] Boni Aguilar, METAL MOULDER - MICROBIOLOGY LAB TECHNICIAN Medication Fdcaat6912/19/2024[facility] [address] [place] [address] Boni Aguilar, METAL MOULDER - MICROBIOLOGY LAB TECHNICIAN Medication Adrmdo3612/12/2024[facility] [address] [place] [address] Boni Aguilar, METAL MOULDER - MICROBIOLOGY LAB TECHNICIAN Medication Fryghg2112/12/2024[facility] [address] [place] [address] Boni Aguilar, METAL MOULDER - MICROBIOLOGY LAB TECHNICIAN Medication Bejvbl4212/11/2024[facility] [address] [place] [address] Boni Aguilar, METAL MOULDER - MICROBIOLOGY LAB TECHNICIAN Medication Pfqrdo2512/06/2024[facility] [address] [place] [address] Boni Aguilar, METAL MOULDER - MICROBIOLOGY LAB TECHNICIAN Medication Ntfmis9011/29/2024[facility] [address] [place] [address] Boni Aguilar, METAL MOULDER - MICROBIOLOGY LAB TECHNICIAN Medication Ibalak7711/21/[address] [address] Boni Aguilar, METAL MOULDER - MICROBIOLOGY LAB TECHNICIAN Medication Rikqae5711/15/2024 10:30 AM EDTOffice Visit [facility] [address] [place] [address] Boni Aguilar, METAL MOULDER - MICROBIOLOGY LAB TECHNICIAN Chronic bilateral low back pain without sciatica (Primary Dx); Medication management; Anxiety; Overweight (BMI 25.0-29.9)11/12/2024[facility] [address] [place] [address] Boni Aguilar, METAL MOULDER - MICROBIOLOGY LAB TECHNICIAN Medication Zbkdgb9711/08/[address] [address] Boni Aguilar, METAL MOULDER - MICROBIOLOGY LAB TECHNICIAN Medication Btfzft3911/07/20[address] [address] Ramesh Rodriguez MD Medication Fjoknp4611/07/2024[facility] [address] [place] [address] Boni Aguilar, METAL MOULDER - MICROBIOLOGY LAB TECHNICIAN Medication Xlmpuy8310/21/[address] [address] Boni Aguilar, METAL MOULDER - MICROBIOLOGY LAB TECHNICIAN Medication Refillfrom Last 3 Months Immunizations ImmunizationAdministration DatesNext DuePneumococcal, PPSV23, PNEUMOVAX 23, (age 2y+), SC/IM, 0.5mL09/19/2016 Family History Medical HistoryRelationNameCommentsArthritisFatherOtherMaternal Grandmother anxietyThyroid DiseaseMaternal GrandmotherCancerMotherThroatOtherMotherrestless leg, anxietyOtherPaternal GrandmotheranxietyRelationNameStatusCommentsFather AliveMaternal GrandmotherMotherAlivePaternal Grandmother Social History Tobacco UseTypesPacks/DayYears UsedDateSmoking Tobacco: Every ShwOhocrkzzox01 Smokeless Tobacco: Never Tobacco Cessation:Ready to Q uit: Yes; Counseling Given: Yes Comments:Patient has decreased smoking usage Alcohol UseStandard Drinks/WeekCommentsNot Currently0 (1 standard drink = 0.6 oz pure alcohol)[facility] UtilitiesAnswerDate RecordedIn the past 12 months has the electric, gas, oil, or water company threatened to shut off services in your home?No05/17/2024Overall Financial Resource Strain (CARDIA)AnswerDate Recorded How hard is it for you to pay for the very basics like food, housing, medical care, and heating?Not hard at all05/04/2023HQ-2AnswerDate RecordedPHQ-9 Total Znejw619Hunger Vital SignAnswerDate RecordedWithin the past 12 months, [...] steady place to sleep or slept in ashelter (including now)?No05/04/2023Housing Stability Vital SignAnswerDate RecordedIn the last 12 months, was there a time when you were not able to pay the mortgage or rent on time?No05/17/2024In the past 12 months, how many times have you moved where you were living? At any time in the past 12 months, were you homeless or living in a prison (including now)?05/17/2024Food InsecurityAnswerDate RecordedWithin the past 12 months, you worried that your food would run out before you got the money to buy more.Within the past 12 months, the food you bought just didn't last and you didn't have money to get more.CommentsNoSex and Gender InformationValueDate RecordedSex Assigned at BirthNot on fileLegal Sex Kfwweo8805/09/2012 4:09 PM ESTGender IdentityNot on fileSexual OrientationNot on file Last Filed Vital Signs Vital SignReadingTime TakenCommentsBlood Blwkvbjb948/7808 10:34 AM EDT Pmtbm7044 11:07 AM QKSXnwsbsbczqn25.8 ??C (98.2 ??F)09/15/2017 12:33 PM EDTRespiratory Uuud920209/15/2017 12:33 PM EDTOxygen Zpbwwkbtqp80%11/15/2024 10:34 AM EDTInhaled Oxygen Concentration--Teidff81.3 kg (168 lb 4.8 oz)11/15/2024 10:34 AM RKZBphkad926.6 cm (5' 5.98 )11/15/2024 10:34 AM EDTBody Mass Index27.18 11/15/2024 10:34 AM EDT Plan of Treatment Health MaintenanceDue DateLast DoneCommentsVaricella vaccine (1 of 2 - 13+ 2- dose series)01/15/2001HIV kprssv3801/15/2003DTaP/Tdap/Td vaccine (1 - Tdap) 01/15/2007Hepatitis B vaccine (1 of 3 - 19+ 3-dose series)01/15/2007Pap smear 01/15/2009Pneumococcal 0-49 years Vaccine (2 of 2 - PCV) Cervical cancer sfiwcc6801/15/2018HPV (without or with Pap)01/15/2018Flu vaccine (#1)10/28/2024OVID-19 Vaccine (1 - 2023- season)2024Depression Screen 602/, 05/17/2024Diabetes pzvyfe44/, 07/27/2023 Hepatitis C gabdsePkhcewdyl19/29/2024HPV vaccine (No Doses Required)Completed Hepatitis A vaccineAged OutNo longer eligible based on patient's age to complete this topicHib vaccineAged OutNo longer eligible based on patient's age to complete this topicMeningococcal (ACWY) vaccineAged OutNo longer eligible based on patient's age to complete this topicMeningococcal B vaccineAged OutNo longer eligible based on patient's age to complete this topicPolio vaccineAged OutNo longer eligible based on patient's age to complete this topic Procedures Procedure NamePriorityDate/TimeAssociated DiagnosisCommentsCBC WITH AUTO QKHQYXLCYQJFCjqkfqx53/15/2025 Overweight (BMI 25.0-29.9) Insomnia, unspecified type History of anemia LIPID, SVQJYVAHtcpqlr05/14/2025 Lipid screening BASIC METABOLIC PANEL, XJRHQKEUirxeru33/14/2025 Medication management Anxiety Chronic bilateral low back pain without sciatica HEPATITIS C KELHKXMAYctabee28/29/2024 Need for hepatitis C screening test from Last 3 Months or Most Recently Relevant to Health Maintenance Results * CBC with Auto Differential (01/11/2025)Specimen (Source)Anatomical Location / LateralityCollection Method / VolumeCollection TimeReceived TimeBloodBLOOD SPECIMEN / Unknown Narrative Authorizing ProviderResult TypeResult StatusTokavin Aguilar METAL MOULDER - CNPHEMATOLOGY ORDERABLESFinal Result * Lipid, Fasting (01/10/2025)ComponentValueRef RangeTest MethodAnalysis Time Performed AtPathologist SignatureCholesterol, Bxfiyss674Jbtgpnxypvmf, Fasting 666CKT7910 - 70 mg/dLLDL Ezrqujvwyck632Grnsorhh (Source)Anatomical Location / LateralityCollection Method / VolumeCollection TimeReceived TimeBloodBLOOD SPECIMEN / Mpepbet0701/10/2025 Narrative Authorizing ProviderResult TypeResult StatusTokavin Jose Orozcojoan METAL MOULDER - CNPCHEMISTRY ORDERABLESFinal Result * Basic Metabolic Panel, Fasting (01/10/2025)ComponentValueRef RangeTest Method Analysis TimePerformed AtPathologist SignatureSodiumPotassiumChlorideCO2 Glucose, Iaqedsj73fx/dLCalciumBUNCreatinineBUN/Creatinine RatioAnion GapGFR Non->90GFR AmericanSpecimen (Source)Anatomical Location / LateralityCollection Method / VolumeCollection TimeReceived Time BloodBLOOD SPECIMEN / Woijydr8501/10/2025 Narrative Authorizing ProviderResult TypeResult StatusTokavin Jeff METAL MOULDER - CNPCHEMISTRY ORDERABLESFinal Result * Hepatitis C Antibody (07/27/2023)ComponentValueRef RangeTest MethodAnalysis TimePerformed AtPathologist SignatureAntibody ScreenSpecimen (Source) Anatomical Location / LateralityCollection Method / VolumeCollection Time Received TimeBloodBLOOD SPECIMEN / Ylkvqfl8707/27/2023 Narrative Authorizing ProviderResult TypeResult StatusTokavin Jeff METAL MOULDER - CNPIMMUNOLOGY ORDERABLESFinal Result from Last 3 Months or Most Recently Relevant to Health Maintenance Insurance Care Teams Team MemberRelationshipSpecialtyStart DateEnd Date Boni Aguilar, METAL MOULDER - MICROBIOLOGY LAB TECHNICIAN PCP - General05/19/18
--- OUTSIDE RECORDS SUMMARY | 2025-01-17 11:30 | XMS_ITS | Clinical Summary ---
Author Organization [employer] tem Address [facility] [id number] [address] [place] [address] Care Team Providers Care Exchange Underwriting Consultant Name Role Phone Eleazar Benavides MD Primary Care Provider Allergies Active AllergyReactionsCriticalityNoted DgcbQweumhodDogtdqyb16/19/2015Ketorolac 12/06/2020 Medications MedicationSigDispense QuantityRefillsLast FilledStart DateEnd DateStatus omeprazole (PriLOSEC) 40 mg capsule take 1 capsule by mouth once daily09/16/2017Active albuterol (PROVENTIL HFA;VENTOLIN HFA) 90 mcg/actuation inhaler Inhale. 2017Active FeroSuL 325 mg (65 mg iron) tablet Take 1 tablet (325 mg total) by mouth in the morning.11/19/2020ctive ALPRAZolam (XANAX) 0.5 mg tablet Take 1 tablet (0.5 mg total) by mouth nightly as needed for anxiety.Active ibuprofen (MOTRIN) 800 mg tablet Take 1 tablet (800 mg total) by mouth 3 (three) times a day. 21 tablet 12/25/2022ctive varenicline (CHANTIX) 1 mg tablet Take 1 tablet (1 mg total) by mouth in the morning and 1 tablet (1 mg total) before bedtime. Take with full glass of water..Active Active Problems ProblemNoted DateDiagnosed DateKidney stone Overview (07/24/2021): 04/10/21: 1.4 cm left renal pelvis stone seen on CT 12/06/2020. Treated with left ureteroscopy 12/13/2020. Stent removed 12/20/2020. She has chronic back/abdominal pain that predated her stone diagnosis and has been persistent since treatment. To make sure we are not missing anything, we will check a renal/bladder US. If neg, she will need to follow-up with her PCP to investigate non urologic causes. Assessment & Plan (04/10/2021 3:35 PM EST): Her CT from November did show some hepatomegaly and fatty infiltration of the liver. She had some follow-up labs from her family doctor but wants to make sure there is no other underlying reason forthese findings. We will refer to hepatobiliary. If her ultrasound comes back negative, we will see her back in 6 months with a KUB to check on the left-sided intrarenal stone. She did request some Iola to have on hand for breakthrough pain until she can get in with her family doctor to further investigate it. OARRS reviewed. I did send in a short prescription Encounters DateTypeDepartmentCare NviuPjfezasfixv59/14/2025Travelfrom Last 3 Months Family History Medical HistoryRelationNameCommentsArthritisFatherGoutFatherAnxiety disorder MotherCancerMotherthroatBreast cancerNeg HxRelationNameStatusCommentsFatherAlive MotherAlive Social History Tobacco UseTypesPacks/DayYears UsedDateSmoking Tobacco: Every DayCigarettes Smokeless Tobacco: Never Tobacco Cessation:Ready to Q uit: No; Counseling Given: Yes Alcohol UseStandard Drinks/WeekCommentsNo0 (1 standard drink = 0.6 oz pure alcohol)AUDIT-CAnswerDate RecordedFrequency of Alcohol ConsumptionNever 12/28/2019Average Number of DrinksNot on file12/28/2019Frequency of Binge DrinkingNot on file12/28/2019ChildcareAnswerDate RecordedChildcareUnknown 09/08/2018EmploymentAnswerDate OjfgxhxaHjyoqxmkivMtdqsnm92/12/2019Hunger ScreeningAnswerDate RecordedWithin the past 12 months we worried whether our food would run out before we got money to buy more.Never True03/21/2024Within the past 12 months the food we bought just didn't last and we didn't have money to get more.Never True4Purpose - LifeAnswerDate RecordedPurpose and direction in auycYtjgebo18/15/2021CommentsNoSex and Gender Information ValueDate RecordedSex Assigned at BirthNot on fileLegal XyrYfwvxd02/06/2015 11:38 AM EDTGender IdentityNot on fileSexual OrientationNot on file Last Filed Vital Signs Vital SignReadingTime TakenCommentsBlood Qckzrkwe774/9103/21/2024 8:35 AM EST Qnnbd151103/21/2024 8:35 AM EJFIglabjffgbw76.7 ??C (98.1 ??F)03/21/2024 8:35 AM ESTRespiratory Emwx723605/22/2023 8:35 AM ESTOxygen Qdqhxmvkuu18%03/21/2024 8:35 AM ESTInhaled Oxygen Concentration--Cxfdvc98.9 kg (185 lb)01/31/2024 7:53 PM EST Cujngc661.6 cm (5' 6 )01/31/2024 7:53 PM ESTBody Mass Index29.8601/31/2024 7:53 PM EST Plan of Treatment Health MaintenanceDue DateLast DoneCommentsTobacco Fkvtbitzzb1988 Depression Brhfaniej59/19/2000Adult BMI Follow Up Plan01/15/2006DTaP,Tdap and Td Vaccines (1 - Tdap)01/15/2007Influenza Ftuxxki18/01/2025Adult BMI Screening Tobacco Gcaukqkev46ap Smear04/20/2026 04/20/2023, 04/20/2023 Medical Devices ExplantedTypeAreaManufacturerDevice IdentifierShelf Expiration DateModel / Serial / LotStent Uret 6fr 26cm Pgtl Crv Tpr Tip Bldr Mrk Lp Lg Inr Lum Rpl [id number] - [id number] - [id number] Implanted:Qty: 1 on 12/13/2020 by Yong Peterson MD at [facility] Explanted:Qty: 1 on 12/20/2020 [facility]entLeft: UreterBOSTON SCIENTIFIC [id number] / [id number] / [id number] Procedures Procedure NamePriorityDate/TimeAssociated DiagnosisCommentsBASIC METABOLIC PANEL Pijcutx3801/10/2025 9:16 AM EDT Overweight Insomnia, unspecified Personal history of diseases of the blood and blood-forming organs and certain disorders involving the immune mechanism LIPID JFWQGPFEcwhrst59/14/2025 9:16 AM EDT Overweight Insomnia, unspecified Personal history of diseases of the blood and blood-forming organs and certain disorders involving the immune mechanism DEHYDROEPIANDROSTERONE, LIXEZLpafdav64/14/2025 9:16 AM EDT Polycystic ovarian syndrome DHEA-ZLOVOKRWqbdyvj25/14/2025 9:16 AM EDT Polycystic ovarian syndrome HEMOGLOBIN D0ISpuigce34/14/2025 9:16 AM EDT Polycystic ovarian syndrome LUTEINIZING RUMAFWCPlxrnvs65/14/2025 9:16 AM EDT Polycystic ovarian syndrome FOLLICLE STIMULATING EUARTBFZcavujt39/14/2025 9:16 AM EDT Polycystic ovarian syndrome CBC WITH AUTO BMKILOPAJUWXFcicscy74/14/2025 9:16 AM EDT Polycystic ovarian syndrome THYROID PROFILE INCLUDES TSH UX3Ibuasay80/14/2025 9:16 AM EDT Polycystic ovarian syndrome HCG-BETA, DDTVUFismdnr37/14/2025 9:16 AM EDT Polycystic ovarian syndrome HIGH RISK HPV W/LTIBNchkaev31/22/2024 4:23 AM EST Encounter for gynecological examination (general) (routine) without abnormal findings from Last 3 Months or Most Recently Relevant to Health Maintenance Results * Dehydroepiandrosterone, Serum (DHEA) (01/10/2025 9:16 AM EDT)ComponentValueRef RangeTest MethodAnalysis TimePerformed AtPathologist Signature DEHYDROEPIANDROSTERONE, S3.4<10 ng/mL2025 8:43 AM [facility] LABORATORIESComment: ADDITIONAL INFORMATION This test was developed and its performance characteristics determined by [facility] in a manner consistent with CLIA requirements. This test has not been cleared or approved by the U.S. Food and Drug Administration. Test Performed by: [facility] [place] [address] [employer] School Sports Coach: Ever Francis Ph.D.; CLIA# [id number] Specimen (Source)Anatomical Location / LateralityCollection Method / Volume Collection TimeReceived TimeBloodVenous blood / UnknownVenipuncture / Unknown 01/10/2025 9:16 AM EDT1 9:20 AM EDT Narrative Authorizing ProviderResult TypeResult StatusCorey R Clary DOLAB BLOOD ORDERABLES Final ResultPerforming OrganizationAddressCity/State/ZIP CodePhone Number [facility] [address] [place] [address], * Thyroid profile includes TSH FT4 (01/10/2025 9:16 AM EDT)ComponentValueRef RangeTest MethodAnalysis TimePerformed AtPathologist SignatureFREE T41.100.61 - 1.60 ng/dL01/10/2025 2:22 PM [facility] LABORATORYTSH1.26 0.49 - 4.67 uIU/mL01/10/2025 2:22 PM [facility] Specimen (Source)Anatomical Location / LateralityCollection Method / Volume Collection TimeReceived TimeBloodVenous blood / UnknownVenipuncture / Unknown 01/10/2025 9:16 AM EDT1 9:20 AM EDT Narrative Authorizing ProviderResult TypeResult StatusCorey R Clary DOLAB BLOOD ORDERABLES Final ResultPerforming OrganizationAddressCity/State/ZIP CodePhone Number [facility] [address] [place] [address], * (ABNORMAL) CBC auto differential (01/10/2025 9:16 AM EDT)ComponentValueRef RangeTest MethodAnalysis TimePerformed AtPathologist TbfoczuylHDR33.14 - 11 x10E9/L1 1:55 PM [facility] LABORATORYRBC Count4.58 3.8 - 5.2 X10E12/L1 1:55 PM [facility] Klzchjctyi30.911.7 - 15.5 g/dL01/10/2025 1:55 PM [facility] ZUMHZXGXBFIvqgdjtuef45.335 - 47 %01/10/2025 1:55 PM [facility] QANAPJINFVCXO2936 - 100 fL01/10/2025 1:55 PM [facility] PXRPSWRYFUSXU70.527 - 34 pg01/10/2025 1:55 PM [facility] RAOFAEVRTPDMIC46.432 - 36 g/dL01/10/2025 1:55 PM [facility] VMSKBQSBQMUMW14.411.5 - 15 %01/10/2025 1:55 PM [facility] LABORATORYPlatelet Mjrjc518101 - 450 X10E9/L1 1:55 PM EDT [facility] LABORATORYMPV9.57 - 12 fL01/10/2025 1:55 PM [facility] LABORATORYNeutrophils %72.9%01/10/2025 1:55 PM [facility] LABORATORYLymphocytes %16.8%01/10/2025 1:55 PM [facility] LABORATORYMonocytes %8.2%01/10/2025 1:55 PM [facility] LABORATORYEosinophils %1.5%01/10/2025 1:55 PM [facility] LABORATORYBasophils %0.6%01/10/2025 1:55 PM [facility] LABORATORYNeutrophils Absolute (A)7.3(H)1.5 - 6.6 10*3/uL 01/10/2025 1:55 PM [facility] LABORATORYLymphocytes Absolute 1.71.0 - 3.5 10*3/uL01/10/2025 1:55 PM [facility] Monocytes Absolute0.80.0 - 0.9 10*3/uL01/10/2025 1:55 PM [facility] LABORATORYEosinophils Absolute0.20.0 - 0.4 10*3/uL01/10/2025 1:55 PM [facility] LABORATORYBasophils Absolute0.10.0 - 0.2 10*3/uL 01/10/2025 1:55 PM [facility] LABORATORYDifferential Type AUTOMATED AORWQDJCILVP65/14/2025 1:55 PM [facility] LABORATORYSpecimen (Source)Anatomical Location / LateralityCollection Method / VolumeCollection TimeReceived TimeBloodVenous blood / UnknownVenipuncture / Cbjnzxm6201/10/2025 9:16 AM EDT1 9:20 AM EDT Narrative Authorizing ProviderResult TypeResult StatusCorey R Clary DOLAB BLOOD ORDERABLES Final ResultPerforming OrganizationAddressCity/State/ZIP CodePhone Number [facility] [address] [place] [phone], * DHEA-sulfate (01/10/2025 9:16 AM EDT)ComponentValueRef RangeTest Method Analysis TimePerformed AtPathologist SignatureDHEA B96808 - 266 ug/dL 01/10/2025 2:18 PM [facility] LABORATORYSpecimen (Source) Anatomical Location / LateralityCollection Method / VolumeCollection Time Received TimeBloodVenous blood / UnknownVenipuncture / Dsnscuc8501/10/2025 9:16 AM EDT1 9:20 AM EDT Narrative Authorizing ProviderResult TypeResult StatusCorey R Clary DOLAB BLOOD ORDERABLES Final ResultPerforming OrganizationAddressCity/State/ZIP CodePhone Number [facility] [address] [place] [address], * hCG, quantitative, (01/10/2025 9:16 AM EDT)ComponentValueRef Range Test MethodAnalysis TimePerformed AtPathologist SignatureSERUM B HCG,3RD I.S. <5mIU/mL01/10/2025 2:06 PM [facility] LABORATORYSpecimen (Source)Anatomical Location / LateralityCollection Method / VolumeCollection TimeReceived TimeBloodVenous blood / UnknownVenipuncture / Ojpyajz9901/10/2025 9:16 AM EDT1 9:20 AM EDT Narrative [facility] - 01/10/2025 2:06 PM EDT WEEKS (SINCE LMP) MIU/mL 3 WEEKS ?5 - 50 4 [...] necessarily diagnostic for trophoblastic or nontrophoblastic neoplasms. Authorizing ProviderResult TypeResult StatusCorey Kathleen Clarynilsa QUEVEDOAB BLOOD ORDERABLES Final ResultPerforming OrganizationAddressty/State/[facility] CodePhone Number [facility] [address] [place] [address], * Hemoglobin A1c (01/10/2025 9:16 AM EDT)ComponentValueRef RangeTest Method Analysis TimePerformed AtPathologist SignatureHEMOGLOBIN A1C4.84.4 - 5.6 % 01/10/2025 3:33 PM [facility] LABORATORYComment: ?ADA Guidelines ?Result ?HgbA1c ? Normal : ? less than 5.7 % ? Prediabetes : ?5.7 % ??to 6.4 % Diabetes : > 6.4 % ?Use with caution in patients with abnormal hemoglobin variants as ??the half-life of red blood cells and in vivo glycation rates are ??affected. EST. AVERAGE JCXGYJA88xi/dL01/10/2025 3:33 PM [facility] LABORATORYSpecimen (Source)Anatomical Location / LateralityCollection Method / VolumeCollection TimeReceived TimeBloodVenous blood / UnknownVenipuncture / Xatuhtg4801/10/2025 9:16 AM EDT1 9:20 AM EDT Narrative Authorizing ProviderResult TypeResult StatusCorey Kathleen QUEVEDOAB BLOOD ORDERABLES Final ResultPerforming OrganizationAddressCity/State/ZIP CodePhone Number [facility] [address] [place] [address], * Luteinizing hormone (01/10/2025 9:16 AM EDT)ComponentValueRef RangeTest Method Analysis TimePerformed AtPathologist SignatureLUTEINIZING JUAKZTC19.0mIU/mL 01/10/2025 2:46 PM [facility] LABORATORYSpecimen (Source) Anatomical Location / LateralityCollection Method / VolumeCollection Time Received TimeBloodVenous blood / UnknownVenipuncture / Usrhgda6601/10/2025 9:16 AM EDT1 9:20 AM EDT Narrative [facility] - 01/10/2025 2:46 PM EDT NORMAL FEMALE Follicular ?? 2.1-10.9 ??mIU/mL Mid Cycle ??19.2-103 ?? mIU/mL Luteal ?? 1.2-12.9 ??mIU/mL Post Gabby ??10.9-58.6 ??mIU/mL Authorizing ProviderResult TypeResult StatusCorey Kathleen HEARD BLOOD ORDERABLES Final ResultPerforming OrganizationAddressCity/State/ZIP CodePhone Number [facility] [address] [place] [address], * Follicle stimulating hormone (01/10/2025 9:16 AM EDT)ComponentValueRef Range Test MethodAnalysis TimePerformed AtPathologist SignatureFOLLICLE STIM HORMONE 8.3mIU/mL01/10/2025 2:45 PM [facility] LABORATORYSpecimen (Source)Anatomical Location / LateralityCollection Method / VolumeCollection TimeReceived TimeBloodVenous blood / UnknownVenipuncture / Eellxml5701/10/2025 9:16 AM EDT1 9:20 AM EDT Narrative [facility] - 01/10/2025 2:45 PM EDT NORMAL FEMALE: Luteal ??1.8-5.1 ?mIU/mL Follicular ??3.8-8.8 ?mIU/mL Mid Cycle ??4.5-22.5 ?? mIU/mL Post Gabby ??16.7-113.6 ??mIU/mL Authorizing ProviderResult TypeResult StatusCorey R Clary DOLAB BLOOD ORDERABLES Final ResultPerforming OrganizationAddressCity/State/ZIP CodePhone Number [facility] [address] [place] [address], * Lipid profile (01/10/2025 9:16 AM EDT)ComponentValueRef RangeTest Method Analysis TimePerformed AtPathologist JlmmhgsstGLDIBYJYIMV166088 - 200 mg/dL 01/10/2025 2:20 PM [facility] PMMVSWXVKSUBTCXQVNYVMS70854 - 150 mg/dL01/10/2025 2:20 PM [facility] LABORATORYHDL JNNCZKTEWBW99>39 mg/dL01/10/2025 2:20 PM [facility] LABORATORYComment: HDL <40 mg/dL - High Risk HDL > or = 40mg/dL- Desirable HDL >60 mg/dL - Negative Risk LDL (CALC)112<130 mg/dL01/10/2025 2:20 PM [facility] Comment: LDL <100 mg/dL - Desirable LDL >160 mg/dL - High Risk CHOLESTEROL:HDL4.01.0 - 5.010 2:20 PM [facility] LABORATORYVERY LOW XPACKIJSVNS439 - 30 mg/dL01/10/2025 2:20 PM [facility] LABORATORYSpecimen (Source)Anatomical Location / Laterality Collection Method / VolumeCollection TimeReceived TimeBloodVenous blood / UnknownVenipuncture / Xlhygfh4901/10/2025 9:16 AM EDT1 9:20 AM EDT Narrative Authorizing ProviderResult TypeResult StatusTodd Jose Aguilar [employer] HAND-CNPLAB BLOOD ORDERABLESFinal ResultPerforming OrganizationAddressCity/State/ZIP CodePhone Number [facility] [address] [place] [address], * Basic Metabolic Panel (01/10/2025 9:16 AM EDT)ComponentValueRef RangeTest MethodAnalysis TimePerformed AtPathologist IasvaykmjXQJIOT966792 - 146 mmol/L 01/10/2025 2:20 PM [facility] LABORATORYPOTASSIUM4.33.5 - 5.0 mmol/L1 2:20 PM [facility] NMDHPDARBWDDLKDLDU58584 - 109 mmol/L1 2:20 PM [facility] LABORATORYCARBON DXQMXJN0956 - 32 mmol/L1 2:20 PM [facility] LABORATORYANION DXJ629 - 15 mmol/L1 2:20 PM [facility] LABORATORYBLOOD UREA EUQEQCCE542 - 23 mg/dL01/10/2025 2:20 PM [facility] LABORATORYCREATININE0.790.40 - 1.00 mg/dL01/10/2025 2:20 PM [facility] LABORATORYComment:METHOD TRACEABLE TO IDMS QDETUMRUILPQQOY1323 - 99 mg/dL01/10/2025 2:20 PM [facility] LABORATORYCALCIUM9.38.5 - 10.5 mg/dL01/10/2025 2:20 PM [facility] LABORATORYEGFR Non-Race Dependent>90>=60 ml/min/1.73sq.m1 2:20 PM [facility] LABORATORYComment: Reported eGFR is based on the CKD-EPI 2020 equation that does not use a race coefficient. Specimen (Source)Anatomical Location / LateralityCollection Method / Volume Collection TimeReceived TimeBloodVenous blood / UnknownVenipuncture / Unknown 01/10/2025 9:16 AM EDT1 9:20 AM EDT Narrative Authorizing ProviderResult TypeResult StatusTokavin Aguilar [employer] HAND-CNPLAB BLOOD ORDERABLESFinal ResultPerforming OrganizationAddressCity/State/ZIP CodePhone Number [facility] [address] [place] [address], * High risk HPV w/jm (04/20/2023 4:23 AM EST)ComponentValueRef RangeTest MethodAnalysis TimePerformed AtPathologist SignatureHpv specimen typeThinPrep 04/21/2023 4:24 AM ESTSUNQUESTHpv 16NegativeNegative^Eyhvmava73/24/2024 6:32 AM [facility] LABHpv 18NegativeNegative^Nxdmrcqy60/24/2024 6:32 AM [facility] LABOther high risk hpvNegative Negative^Ndxijagp49/24/2024 6:32 AM [facility] LABComment: HPV types 31,33,35,39,45,52,56,58,59,66 and 68 DNA were undetectable. Specimen (Source)Anatomical Location / LateralityCollection Method / Volume Collection TimeReceived SsseBOJET39/22/2024 4:23 AM EST04/21/2023 4:24 AM EST Narrative Authorizing ProviderResult TypeResult StatusMadeleine Zhou MEDEL BLOOD ORDERABLESFinal ResultPerforming OrganizationAddressCity/State/ZIP CodePhone Number [facility] [address], [address] [place] [address] from Last 3 Months or Most Recently Relevant to Health Maintenance Insurance Care Teams Team MemberRelationshipSpecialtyStart DateEnd Date Eleazar Benavides MD [address] [place] [phone] PCP - GeneralFamily Okwqxguo35/23/24
--- OUTSIDE RECORDS SUMMARY | 2025-01-17 11:30 | XMS_ITS | Encounter Summary ---
Author Organization [facility] Address [address], [address] [place] [address] Care Team Providers Care Chain Puller Name Role Phone ErnestoBoni frnaco Jose SENIOR PLANNER - PLANT NURSERY WORKER Primary Care Provider Encounter Details DateTypeDepartmentCare Team (Latest Contact Info)Avhwhmztknj81/15/2025Results Follow-Up [facility] [address] [place], [place] [phone] [place] [address] [address] [place] [address] Social History Tobacco UseTypesPacks/DayYears UsedDateSmoking Tobacco: Every AdzIfxycyobqc87 Smokeless Tobacco: Never Comments:Patient has decreas ed smoking usage Alcohol UseStandard Drinks/WeekCommentsNot Currently0 (1 standard drink = 0.6 oz pure alcohol)[facility] UtilitiesAnswerDate RecordedIn the past 12 months has the electric, gas, oil, or water company threatened to shut off services in your home?No05/17/2024Overall Financial Resource Strain (CARDIA)AnswerDate Recorded How hard is it for you to pay for the very basics like food, housing, medical care, and heating?Not hard at all05/04/2023HQ-2AnswerDate RecordedPHQ-9 Total Vlfhj275Hunger Vital SignAnswerDate RecordedWithin the past 12 months, [...] were you homeless or living in a jail (including now)?No05/17/2024Food InsecurityAnswerDate RecordedWithin the past 12 months, you worried that your food would run out before you got the money to buy more.Within the past 12 months, the food you bought just didn't last and you didn't have money to get more.CommentsNoSex and Gender InformationValueDate RecordedSex Assigned at BirthNot on fileLegal Sex Anyeqb5105/09/2012 4:09 PM ESTGender IdentityNot on fileSexual OrientationNot on filedocumented as of this encounter Plan of Treatment Not on file documented as of this encounter Visit Diagnoses Not on filedocumented in this encounter Care Teams Team MemberRelationshipSpecialtyStart DateEnd Date Boni Aguilar, SENIOR PLANNER - PLANT NURSERY WORKER [facility] - General2documented as of this encounter
--- OUTSIDE RECORDS SUMMARY | 2025-01-17 11:30 | XMS_ITS | Encounter Summary ---
Author Organization [facility] Address [address], [address] [place] [address] Care Team Providers Care Steel Layout Worker Name Role Phone Boni Aguilar APRN - SENIOR HR MANAGER Primary Care Provider Reason for Visit * ReasonOnset DateCommentsMedication Exqtbg3301/02/2025 Encounter Details DateTypeDepartmentCare Team (Latest Contact Info)Kinuyemyvmw83/06/2025Ref[facility] [place] [address] Boni Aguilar, VOCATIONAL HORTICULTURE INSTRUCTOR [facility] [place], [place] [id number] Medication Refill Social History Tobacco UseTypesPacks/DayYears UsedDateSmoking Tobacco: Every OmbXuosluozpt45 Smokeless Tobacco: Never Comments:Patient has decreas ed smoking usage Alcohol UseStandard Drinks/WeekCommentsNot Currently0 (1 standard drink = 0.6 oz pure alcohol)[facility] UtilitiesAnswerDate RecordedIn the past 12 months has the electric, gas, oil, or water company threatened to shut off services in your home?No05/17/2024Overall Financial Resource Strain (CARDIA)AnswerDate Recorded How hard is it for you to pay for the very basics like food, housing, medical care, and heating?Not hard at all05/04/2023HQ-2AnswerDate RecordedPHQ-9 Total Wgsuu840Hunger Vital SignAnswerDate RecordedWithin the past 12 months, [...] steady place to sleep or slept in [place] (including now)?No05/04/2023Housing Stability Vital SignAnswerDate RecordedIn the last 12 months, was there a time when you were not able to pay the mortgage or rent on time?No05/17/2024In the past 12 months, how many times have you moved where you were living? At any time in the past 12 months, were you homeless or living in a senior care (including now)?No05/17/2024Food InsecurityAnswerDate RecordedWithin the past 12 months, you worried that your food would run out before you got the money to buy more.Within the past 12 months, the food you bought just didn't last and you didn't have money to get more.CommentsNoSex and Gender InformationValueDate RecordedSex Assigned at BirthNot on fileLegal Sex Skupzi5705/09/2012 4:09 PM ESTGender IdentityNot on fileSexual OrientationNot on filedocumented as of this encounter Plan of Treatment Not on file documented as of this encounter Visit Diagnoses Diagnosis Chronic bilateral low back pain without sciatica documented in this encounter Care Teams Team MemberRelationshipSpecialtyStart DateEnd Date Boni Aguilar, VOCATIONAL HORTICULTURE INSTRUCTOR - SENIOR HR MANAGER [facility] - General05/19/18documented as of this encounter
--- OUTSIDE RECORDS SUMMARY | 2025-01-17 11:30 | XMS_ITS | Encounter Summary ---
Author Organization [facility] Address [address], [address] [place] [address] Care Team Providers Care Level Vial Curvature Gauger Name Role Phone Boni Aguilar OXYACETYLENE WELDER - [employer] GR[employer] MANAGER Primary Care Provider Encounter Details DateTypeDepartmentCare Team (Latest Contact Info)Ovxyytpenbl69/15/2025bstract [facility] Primary Care [address] [place], [place] [phone] Arabella [place], [place] Overweight (BMI 25.0-29.9); Insomnia, unspecified type; History of anemia; Medication management; Anxiety; Chronic bilateral low back pain without sciatica; Lipid screening Social History Tobacco UseTypesPacks/DayYears UsedDateSmoking Tobacco: Every SyqOlmlwwljgj07 Smokeless Tobacco: Never Comments:Patient has decreas ed smoking usage Alcohol UseStandard Drinks/WeekCommentsNot Currently0 (1 standard drink = 0.6 oz pure alcohol)[facility] UtilitiesAnswerDate RecordedIn the past 12 months has the [employer], gas, oil, or water [employer] threatened to shut off services in your home?No05/17/2024Overall Financial Resource Strain (CARDIA)AnswerDate Recorded How hard is it for you to pay for the very basics like food, housing, medical care, and heating?Not hard at all05/04/2023HQ-2AnswerDate RecordedPHQ-9 Total Glwyg648Hunger Vital SignAnswerDate RecordedWithin the past 12 months, [...] were you homeless or living in a detention (including now)?No05/17/2024Food InsecurityAnswerDate RecordedWithin the past 12 months, you worried that your food would run out before you got the money to buy more.Within the past 12 months, the food you bought just didn't last and you didn't have money to get more.CommentsNoSex and Gender InformationValueDate RecordedSex Assigned at BirthNot on fileLegal Sex Xxqmxz2605/09/2012 4:09 PM ESTGender IdentityNot on fileSexual OrientationNot on filedocumented as of this encounter Plan of Treatment Not on file documented as of this encounter Procedures Procedure NamePriorityDate/TimeAssociated DiagnosisCommentsCBC WITH AUTO WQHDQXTRVNGSNxybyve46/15/2025 Overweight (BMI 25.0-29.9) Insomnia, unspecified type History of anemia LIPID, QNOWUSQOhhqtwv08/14/2025 Lipid screening BASIC METABOLIC PANEL, NGEQJXZAjsvyde56/14/2025 Medication management Anxiety Chronic bilateral low back pain without sciatica documented in this encounter Results * CBC with Auto Differential (01/11/2025)Specimen (Source)Anatomical Location / LateralityCollection Method / VolumeCollection TimeReceived TimeBloodBLOOD SPECIMEN / Unknown Narrative Authorizing ProviderResult TypeResult Neil Aguilar OXYACETYLENE WELDER - CNPHEMATOLOGY ORDERABLESFinal Result * Lipid, Fasting (01/10/2025)ComponentValueRef RangeTest MethodAnalysis Time Performed AtPathologist SignatureCholesterol, Srsmnvd253Arzqkiggcpgu, Fasting 476OSB8317 - 70 mg/dLLDL Zzrhvdfgxxr868Pjrmjdkq (Source)Anatomical Location / LateralityCollection Method / VolumeCollection TimeReceived TimeBloodBLOOD SPECIMEN / Rnenhfd3001/10/2025 Narrative Authorizing ProviderResult TypeResult Neil Aguilar OXYACETYLENE WELDER - CNPCHEMISTRY ORDERABLESFinal Result * Basic Metabolic Panel, Fasting (01/10/2025)ComponentValueRef RangeTest Method Analysis TimePerformed AtPathologist SignatureSodiumPotassiumChlorideCO2 Glucose, Cpnnzdd22nl/dLCalciumBUNCreatinineBUN/Creatinine RatioAnion GapGFR Non->90GFR AmericanSpecimen (Source)Anatomical Location / LateralityCollection Method / VolumeCollection TimeReceived Time BloodBLOOD SPECIMEN / Yeuzpns9001/10/2025 Narrative Authorizing ProviderResult TypeResult Neil Aguilar OXYACETYLENE WELDER - CNPCHEMISTRY ORDERABLESFinal Result documented in this encounter Visit Diagnoses Diagnosis Overweight (BMI 25.0-29.9) Overweight Insomnia, unspecified type History of anemia Personal history of diseases of blood and blood-forming organs Medication management Encounter for other specified aftercare Anxiety Anxiety state, unspecified Chronic bilateral low back pain without sciatica Lipid screening Screening for lipoid disorders documented in this encounter Care Teams Team MemberRelationshipSpecialtyStart DateEnd Date Boni Aguilar, OXYACETYLENE WELDER - [employer] GROUND MANAGER [facility] - General05/19/18documented as of this encounter
--- OUTSIDE RECORDS SUMMARY | 2025-01-17 11:30 | XMS_ITS | Encounter Summary ---
[facility] Address [address], [address] [place] [address] Care Team Providers Care Architectural Technician Name Role Phone Boni Aguilar APRN [facility] Primary Care Provider Reason for Referral * Medication Prior Authorization - ClosedSpecialtyDiagnoses / ProceduresReferred By ContactReferred To Contact Diagnoses Overweight (BMI 25.0-29.9) [place] [address] [place] [address] Phone: tel: fax: Referral IDStatusReasonStart DateExpiration DateVisits RequestedVisits [id number] Reason for Visit * ReasonCommentsMedication Refill Encounter Details DateTypeDepartmentCare Team (Latest Contact Info)Jaekyxwlaby86/13/2025Ref[facility] [place], [place] [phone] Boni Aguilar APRN [facility] [place], [place] [phone] Medication Refill Social History Tobacco UseTypesPacks/DayYears UsedDateSmoking Tobacco: Every HzaBmafkxesku15 Smokeless Tobacco: Never Comments:Patient has decreas ed smoking usage Alcohol UseStandard Drinks/WeekCommentsNot Currently0 (1 standard drink = 0.6 oz pure alcohol)[facility] UtilitiesAnswerDate RecordedIn the past 12 months has the electric, gas, oil, or water company threatened to shut off services in your home?No05/17/2024Overall Financial Resource Strain (CARDIA)AnswerDate Recorded How hard is it for you to pay for the very basics like food, housing, medical care, and heating?Not hard at all05/04/2023HQ-2AnswerDate RecordedPHQ-9 Total Iulkd172Hunger Vital SignAnswerDate RecordedWithin the past 12 months, [...] steady place to sleep or slept in [place] (including now)?No05/04/2023Housing Stability Vital SignAnswerDate RecordedIn the last 12 months, was there a time when you were not able to pay the mortgage or rent on time?No05/17/2024In the past 12 months, how many times have you moved where you were living? At any time in the past 12 months, were you homeless or living in a group home (including now)?No05/17/2024Food InsecurityAnswerDate RecordedWithin the past 12 months, you worried that your food would run out before you got the money to buy more.Within the past 12 months, the food you bought just didn't last and you didn't have money to get more.CommentsNoSex and Gender InformationValueDate RecordedSex Assigned at BirthNot on fileLegal Sex Tvjuux2505/09/2012 4:09 PM ESTGender IdentityNot on fileSexual OrientationNot on filedocumented as of this encounter Plan of Treatment Not on file documented as of this encounter Visit Diagnoses Diagnosis Medication management Encounter for other specified aftercare Anxiety Anxiety state, unspecified Overweight (BMI 25.0-29.9) Overweight documented in this encounter Care Teams Team MemberRelationshipSpecialtyStart DateEnd Date Boni Aguilar, ACID TENDER - TORCH CUTTER PCP - General05/19/18documented as of this encounter
== END 2025-01-11 00:01 | disposition home or self-care (01) ==
LOC: LAB
PROVIDERS: Visit Provider Obstetrics & Gynecology
DX: N93.8 Other specified abnormal uterine and vaginal bleeding (principal); N92.0 Excessive and frequent menstruation with regular cycle; N94.6 Dysmenorrhea, unspecified
CPT/HCPCS: 88305

== ENCOUNTER 2025-01-26 10:21 | Outpatient (OUT) | payer OTHER, SELFPAY ==
--- OUTSIDE RECORDS SUMMARY | 2025-01-26 10:24 | XMS_ITS | Encounter Summary ---
Author Organization [facility] Address [address] [place] [address] Care Team Providers Care Unit Supervisor Name Role Phone Unavailable Primary Care Provider Unavailabl e Encounter Details DateTypeDepartmentCare Team (Latest Contact Info)Lqztxsogvuw41/27/2025Orders Only [facility]ushar [facility] [address] [place] [address] Dary Castaneda MA [address] [place] [address] Social History Tobacco UseTypesPacks/DayYears UsedDateSmoking Tobacco: Every DayCigarettes Smokeless Tobacco: NeverAlcohol UseStandard Drinks/WeekCommentsYes0 (1 standard drink = 0.6 oz pure alcohol)CommentsNoSex and Gender InformationValue Date RecordedSex Assigned at BirthNot on fileLegal BxaJlbatd06/15/2023 10:13 PM EDTGender IdentityNot on fileSexual OrientationNot on filedocumented as of this encounter Plan of Treatment DateTypeDepartmymichigan medical center saultCare Team (Latest Contact Info)Hywaybswyut47/24/2025 1:30 PM ESTOffice Visit [facility] Tushar [facility] [address] [place] [address] Meagan Cedeno PA [address] [place], [place] [phone] documented as of this encounter Procedures Procedure NamePriorityDate/TimeAssociated DiagnosisCommentsENDOMETRIAL BIOPSY, QCLPTSWGCrctiaq10/15/2025 12:00 AM EDTdocumented in this encounter Results * ENDOMETRIAL BIOPSY, EXTERNAL (01/11/2025 12:00 AM EDT) Narrative Authorizing ProviderResult TypeResult StatusCorey Clary DOLAB CYTOLOGY ORDERABLESFinal ResultPerforming OrganizationAddressCity/State/ZIP CodePhone Number EXTERNAL LAB documented in this encounter Visit Diagnoses Not on filedocumented in this encounter
--- OUTSIDE RECORDS SUMMARY | 2025-01-26 10:24 | XMS_ITS | Clinical Summary ---
Author Organization [employer] tem Address [id number] [address] [place] [address] Care Team Providers Care Machine Packager Name Role Phone Eleazar Benavides MD Primary Care Provider [phone] Allergies Active AllergyReactionsCriticalityNoted MnbfSalggljkSehbvslj35/19/2015Ketorolac 12/06/2020 Medications MedicationSigDispense QuantityRefillsLast FilledStart DateEnd DateStatus [...] left-sided intrarenal stone. She did request some [place] to have on hand for breakthrough pain until she can get in with her family doctor to further investigate it. OARRS reviewed. I did send in a short prescription Encounters DateTypeDepartmentCare AmcxAjwndjtiwhp69/14/2025Travelfrom Last 3 Months Family History Medical HistoryRelationNameCommentsArthritisFatherGoutFatherAnxiety disorder MotherCancerMotherthroatBreast cancerNeg HxRelationNameStatusCommentsFatherAlive MotherAlive Social History Tobacco UseTypesPacks/DayYears UsedDateSmoking Tobacco: Every DayCigarettes Smokeless Tobacco: Never Tobacco Cessation:Ready to Q uit: No; Counseling Given: Yes Alcohol UseStandard Drinks/WeekCommentsNo0 (1 standard drink = 0.6 oz pure alcohol)AUDIT-CAnswerDate RecordedFrequency of Alcohol ConsumptionNever 12/28/2019Average Number of DrinksNot on file12/28/2019Frequency of Binge DrinkingNot on file12/28/2019ChildcareAnswerDate RecordedChildcareUnknown 09/08/2018EmploymentAnswerDate JdcknjwoJwovytuityTtautqn47/12/2019Hunger ScreeningAnswerDate RecordedWithin the past 12 months we worried whether our food would run out before we got money to buy more.Never True03/21/2024Within the past 12 months the food we bought just didn't last and we didn't have money to get more.Never True4Purpose - LifeAnswerDate RecordedPurpose and direction in wemjIywwase32/15/2021CommentsNoSex and Gender Information ValueDate RecordedSex Assigned at BirthNot on fileLegal JixHqlfuz87/06/2015 11:38 AM EDTGender IdentityNot on fileSexual OrientationNot on file Last Filed Vital Signs Vital SignReadingTime TakenCommentsBlood Kiwamfdx135/9103/21/2024 8:35 AM EST Podwd418003/21/2024 8:35 AM TTKCpfzcvdjtbf51.7 ??C (98.1 ??F)03/21/2024 8:35 AM ESTRespiratory Nowy704705/22/2023 8:35 AM ESTOxygen Luhpsjcind71%03/21/2024 8:35 AM ESTInhaled Oxygen Concentration--Ezonnu58.9 kg (185 lb)01/31/2024 7:53 PM EST Dmhhqv786.6 cm (5' 6 )01/31/2024 7:53 PM ESTBody Mass Index29.8601/31/2024 7:53 PM EST Plan of Treatment Health MaintenanceDue DateLast DoneCommentsTobacco Ucrovaylss1988 Depression Ywnsrlpbc08/19/2000Adult BMI Follow Up Plan01/15/2006DTaP,Tdap and Td Vaccines (1 - Tdap)01/15/2007Influenza Xxlndsk12/01/2025Adult BMI Screening Tobacco Vwakweerg57ap Smear04/20/2026 04/20/2023, 04/20/2023 Medical Devices ExplantedTypeAreaManufacturerDevice IdentifierShelf Expiration DateModel / Serial / LotStent Uret 6fr 26cm Pgtl Crv Tpr Tip Bldr Mrk Lp Lg Inr Lum Rpl [id number] - [id number] - [id number] Implanted:Qty: 1 on 12/13/2020 by Yong Peterson MD at [facility] Explanted:Qty: 1 on 12/20/2020 [facility]entLeft: UreterBOSTON SCIENTIFIC [id number] / [id number] / [id number] Procedures Procedure NamePriorityDate/TimeAssociated DiagnosisCommentsBASIC METABOLIC PANEL Zbrhvjb3601/10/2025 9:16 AM EDT Overweight Insomnia, unspecified Personal history of diseases of the blood and blood-forming organs and certain disorders involving the immune mechanism LIPID TSOPQYEHmllcww19/14/2025 9:16 AM EDT Overweight Insomnia, unspecified Personal history of diseases of the blood and blood-forming organs and certain disorders involving the immune mechanism DEHYDROEPIANDROSTERONE, BOHDFSjhykty75/14/2025 9:16 AM EDT Polycystic ovarian syndrome DHEA-SIGTQMTWrpgovm72/14/2025 9:16 AM EDT Polycystic ovarian syndrome HEMOGLOBIN D1QIzmhbtk40/14/2025 9:16 AM EDT Polycystic ovarian syndrome LUTEINIZING UZLPCMBSogjcil48/14/2025 9:16 AM EDT Polycystic ovarian syndrome FOLLICLE STIMULATING ELKCLYEKodscqs13/14/2025 9:16 AM EDT Polycystic ovarian syndrome CBC WITH AUTO XDSHULPJRTZIKbntjhu65/14/2025 9:16 AM EDT Polycystic ovarian syndrome THYROID PROFILE INCLUDES TSH ED0Utxdmxk69/14/2025 9:16 AM EDT Polycystic ovarian syndrome HCG-BETA, IGVDWKaqmwwk95/14/2025 9:16 AM EDT Polycystic ovarian syndrome HIGH RISK HPV W/AYLOGcegcju69/22/2024 4:23 AM EST Encounter for gynecological examination (general) (routine) without abnormal findings from Last 3 Months or Most Recently Relevant to Health Maintenance Results * Dehydroepiandrosterone, Serum (DHEA) (01/10/2025 9:16 AM EDT)ComponentValueRef RangeTest MethodAnalysis TimePerformed AtPathologist Signature DEHYDROEPIANDROSTERONE, S3.4<10 ng/mL2025 8:43 AM [facility] LABORATORIESComment: ADDITIONAL INFORMATION This test was developed and its performance characteristics determined by [facility] in a manner consistent with CLIA requirements. This test has not been cleared or approved by the U.S. Food and Drug Administration. Test Performed by: [facility] [place] [address] Pot Fireman: Ever Francis Ph.D.; CLIA# [id number] Specimen (Source)Anatomical Location / LateralityCollection Method / Volume Collection TimeReceived TimeBloodVenous blood / UnknownVenipuncture / Unknown 01/10/2025 9:16 AM EDT1 9:20 AM EDT Narrative Authorizing ProviderResult TypeResult StatusCorey R Clary DOLAB BLOOD ORDERABLES Final ResultPerforming OrganizationAddressCity/State/ZIP CodePhone Number [facility] [address] [place] [address], * Thyroid profile includes TSH FT4 (01/10/2025 9:16 AM EDT)ComponentValueRef RangeTest MethodAnalysis TimePerformed AtPathologist SignatureFREE T41.100.61 - 1.60 ng/dL01/10/2025 2:22 PM [facility] LABORATORYTSH1.26 0.49 - 4.67 uIU/mL01/10/2025 2:22 PM [facility] Specimen (Source)Anatomical Location / LateralityCollection Method / Volume Collection TimeReceived TimeBloodVenous blood / UnknownVenipuncture / Unknown 01/10/2025 9:16 AM EDT1 9:20 AM EDT Narrative Authorizing ProviderResult TypeResult StatusCorey R Clary DOLAB BLOOD ORDERABLES Final ResultPerforming OrganizationAddressCity/State/ZIP CodePhone Number [facility] [address] [place] [address], * (ABNORMAL) CBC auto differential (01/10/2025 9:16 AM EDT)ComponentValueRef RangeTest MethodAnalysis TimePerformed AtPathologist ThzcygkfdGXF29.14 - 11 x10E9/L1 1:55 PM [facility] LABORATORYRBC Count4.58 3.8 - 5.2 X10E12/L1 1:55 PM [facility] Ycqoboghoa55.911.7 - 15.5 g/dL01/10/2025 1:55 PM [facility] CWFMVTTRHSNnfsstdezg74.335 - 47 %01/10/2025 1:55 PM [facility] IRFSYPDLCQQSU3253 - 100 fL01/10/2025 1:55 PM [facility] UUEKZEWKABNEL56.527 - 34 pg01/10/2025 1:55 PM [facility] TLVOCFALNOFWWR72.432 - 36 g/dL01/10/2025 1:55 PM [facility] WFUOKEDSJGPLM83.411.5 - 15 %01/10/2025 1:55 PM [facility] LABORATORYPlatelet Eevru500591 - 450 X10E9/L1 1:55 PM EDT [facility] LABORATORYMPV9.57 - 12 fL01/10/2025 1:55 PM [facility] LABORATORYNeutrophils %72.9%01/10/2025 1:55 PM [facility] LABORATORYLymphocytes %16.8%01/10/2025 1:55 PM [facility] LABORATORYMonocytes %8.2%01/10/2025 1:55 PM [facility] LABORATORYEosinophils %1.5%01/10/2025 1:55 PM [facility] LABORATORYBasophils %0.6%01/10/2025 1:55 PM [facility] LABORATORYNeutrophils Absolute (A)7.3(H)1.5 - 6.6 10*3/uL 01/10/2025 1:55 PM [facility] LABORATORYLymphocytes Absolute 1.71.0 - 3.5 10*3/uL01/10/2025 1:55 PM [facility] Monocytes Absolute0.80.0 - 0.9 10*3/uL01/10/2025 1:55 PM [facility] LABORATORYEosinophils Absolute0.20.0 - 0.4 10*3/uL01/10/2025 1:55 PM [facility] LABORATORYBasophils Absolute0.10.0 - 0.2 10*3/uL 01/10/2025 1:55 PM [facility] LABORATORYDifferential Type AUTOMATED RWKKWTFIIRYS14/14/2025 1:55 PM [facility] LABORATORYSpecimen (Source)Anatomical Location / LateralityCollection Method / VolumeCollection TimeReceived TimeBloodVenous blood / UnknownVenipuncture / Nqkxqsr3701/10/2025 9:16 AM EDT1 9:20 AM EDT Narrative Authorizing ProviderResult TypeResult StatusCorey R Clary DOLAB BLOOD ORDERABLES Final ResultPerforming OrganizationAddressCity/State/ZIP CodePhone Number [facility] [address] [place] [id number], * DHEA-sulfate (01/10/2025 9:16 AM EDT)ComponentValueRef RangeTest Method Analysis TimePerformed AtPathologist SignatureDHEA J11031 - 266 ug/dL 01/10/2025 2:18 PM [facility] LABORATORYSpecimen (Source) Anatomical Location / LateralityCollection Method / VolumeCollection Time Received TimeBloodVenous blood / UnknownVenipuncture / Luexwgh7601/10/2025 9:16 AM EDT1 9:20 AM EDT Narrative Authorizing ProviderResult TypeResult StatusCorey R Clary DOLAB BLOOD ORDERABLES Final ResultPerforming OrganizationAddressCity/State/ZIP CodePhone Number [facility] [address] [place] [address], * hCG, quantitative, (01/10/2025 9:16 AM EDT)ComponentValueRef Range Test MethodAnalysis TimePerformed AtPathologist SignatureSERUM B HCG,3RD I.S. <5mIU/mL01/10/2025 2:06 PM [facility] LAB[facility]ATORYSpecimen (Source)Anatomical Location / LateralityCollection Method / VolumeCollection TimeReceived TimeBloodVenous blood / UnknownVenipuncture / Lmoosdr4901/10/2025 9:16 AM EDT1 9:20 AM EDT Narrative [facility] - 01/10/2025 2:06 PM EDT WEEKS [...] Kathleen Clarynilsa QUEVEDOAB BLOOD ORDERABLES Final ResultPerforming OrganizationAddressty/State/[facility] CodePhone Number [facility] [address] [place] [address], * Hemoglobin A1c (01/10/2025 9:16 AM EDT)ComponentValueRef RangeTest Method Analysis TimePerformed AtPathologist SignatureHEMOGLOBIN A1C4.84.4 - 5.6 % 01/10/2025 3:33 PM [facility] LABORATORYComment: ?ADA Guidelines ?Result ?HgbA1c ? Normal : ? less than 5.7 % ? Prediabetes : ?5.7 % ??to 6.4 % Diabetes : > 6.4 % ?Use with caution in patients with abnormal hemoglobin variants as ??the half-life of red blood cells and in vivo glycation rates are ??affected. EST. AVERAGE JPXKDGJ95rh/dL01/10/2025 3:33 PM [facility] LABORATORYSpecimen (Source)Anatomical Location / LateralityCollection Method / VolumeCollection TimeReceived TimeBloodVenous blood / UnknownVenipuncture / Agipzcc2301/10/2025 9:16 AM EDT1 9:20 AM EDT Narrative Authorizing ProviderResult TypeResult StatusCorey Kathleen QUEVEDOAB BLOOD ORDERABLES Final ResultPerforming OrganizationAddressCity/State/ZIP CodePhone Number [facility] [address] [place] [address], * Luteinizing hormone (01/10/2025 9:16 AM EDT)ComponentValueRef RangeTest Method Analysis TimePerformed AtPathologist SignatureLUTEINIZING OZWMTMJ24.0mIU/mL 01/10/2025 2:46 PM [facility] LABORATORYSpecimen (Source) Anatomical Location / LateralityCollection Method / VolumeCollection Time Received TimeBloodVenous blood / UnknownVenipuncture / Romueba9701/10/2025 9:16 AM EDT1 9:20 AM EDT Narrative [facility] - 01/10/2025 2:46 PM EDT NORMAL FEMALE Follicular ?? 2.1-10.9 ??mIU/mL Mid Cycle ??19.2-103 ?? mIU/mL Luteal ?? 1.2-12.9 ??mIU/mL Post Gabby ??10.9-58.6 ??mIU/mL Authorizing ProviderResult TypeResult StatusCorey Kathleen HEARD BLOOD ORDERABLES Final ResultPerforming OrganizationAddressCity/State/ZIP CodePhone Number [facility] [address] [place] [address], * Follicle stimulating hormone (01/10/2025 9:16 AM EDT)ComponentValueRef Range Test MethodAnalysis TimePerformed AtPathologist SignatureFOLLICLE STIM HORMONE 8.3mIU/mL01/10/2025 2:45 PM [facility] LABORATORYSpecimen (Source)Anatomical Location / LateralityCollection Method / VolumeCollection TimeReceived TimeBloodVenous blood / UnknownVenipuncture / Zcbnqnp1201/10/2025 9:16 AM EDT1 9:20 AM EDT Narrative [facility] - 01/10/2025 2:45 PM EDT NORMAL FEMALE: Luteal ??1.8-5.1 ?mIU/mL Follicular ??3.8-8.8 ?mIU/mL Mid Cycle ??4.5-22.5 ?? mIU/mL Post Gabby ??16.7-113.6 ??mIU/mL Authorizing ProviderResult TypeResult StatusCorey R Clary DOLAB BLOOD ORDERABLES Final ResultPerforming OrganizationAddressCity/State/ZIP CodePhone Number [facility] [address] [place] [address], * Lipid profile (01/10/2025 9:16 AM EDT)ComponentValueRef RangeTest Method Analysis TimePerformed AtPathologist WrgvslmjpYNEOPKRENZK559516 - 200 mg/dL 01/10/2025 2:20 PM [facility] CEYODOYRGLCDOXTQZDWXSP25999 - 150 mg/dL01/10/2025 2:20 PM [facility] LABORATORYHDL LONEDUKCCFO59>39 mg/dL01/10/2025 2:20 PM [facility] LABORATORYComment: HDL <40 mg/dL - High Risk HDL > or = 40mg/dL- Desirable HDL >60 mg/dL - Negative Risk LDL (CALC)112<130 mg/dL01/10/2025 2:20 PM [facility] Comment: LDL <100 mg/dL - Desirable LDL >160 mg/dL - High Risk CHOLESTEROL:HDL4.01.0 - 5.010 2:20 PM [facility] LABORATORYVERY LOW AQJOTBHLHAZ122 - 30 mg/dL01/10/2025 2:20 PM [facility] LABORATORYSpecimen (Source)Anatomical Location / Laterality Collection Method / VolumeCollection TimeReceived TimeBloodVenous blood / UnknownVenipuncture / Eyoaxji3101/10/2025 9:16 AM EDT1 9:20 AM EDT Narrative Authorizing ProviderResult TypeResult StatusTodd Jose Aguilar UNDERGROUND DISTRIBUTION ENGINEER-CNPLAB BLOOD ORDERABLESFinal ResultPerforming OrganizationAddressCity/State/ZIP CodePhone Number [facility] [address] [place] [address], * Basic Metabolic Panel (01/10/2025 9:16 AM EDT)ComponentValueRef RangeTest MethodAnalysis TimePerformed AtPathologist HanfnjhqgOKUWIB420659 - 146 mmol/L 01/10/2025 2:20 PM [facility] LABORATORYPOTASSIUM4.33.5 - 5.0 mmol/L1 2:20 PM [facility] VEEUOHHQDAVRDSJXJG73345 - 109 mmol/L1 2:20 PM [facility] LABORATORYCARBON BCISXVE5527 - 32 mmol/L1 2:20 PM [facility] LABORATORYANION CPQ025 - 15 mmol/L1 2:20 PM [facility] LABORATORYBLOOD UREA VVNFQBCK210 - 23 mg/dL01/10/2025 2:20 PM [facility] LABORATORYCREATININE0.790.40 - 1.00 mg/dL01/10/2025 2:20 PM [facility] LABORATORYComment:METHOD TRACEABLE TO IDMS NABOONCIWGUELVN8705 - 99 mg/dL01/10/2025 2:20 PM [facility] LABORATORYCALCIUM9.38.5 - 10.5 mg/dL01/10/2025 2:20 PM [facility] LABORATORYEGFR Non-Race Dependent>90>=60 ml/min/1.73sq.m1 2:20 PM [facility] LABORATORYComment: Reported eGFR is based on the CKD-EPI 2020 equation that does not use a race coefficient. Specimen (Source)Anatomical Location / LateralityCollection Method / Volume Collection TimeReceived TimeBloodVenous blood / UnknownVenipuncture / Unknown 01/10/2025 9:16 AM EDT1 9:20 AM EDT Narrative Authorizing ProviderResult TypeResult StatusTokavin Aguilar UNDERGROUND DISTRIBUTION ENGINEER-CNPLAB BLOOD ORDERABLESFinal ResultPerforming OrganizationAddressCity/State/ZIP CodePhone Number [facility] [address] [place] [address], * High risk HPV w/jm (04/20/2023 4:23 AM EST)ComponentValueRef RangeTest MethodAnalysis TimePerformed AtPathologist SignatureHpv specimen typeThinPrep 04/21/2023 4:24 AM ESTSUNQUESTHpv 16NegativeNegative^Uisiiefc80/24/2024 6:32 AM [facility] LABHpv 18NegativeNegative^Bezujtmp93/24/2024 6:32 AM [facility] LABOther high risk hpvNegative Negative^Womrlfsc23/24/2024 6:32 AM [facility] LABComment: HPV types 31,33,35,39,45,52,56,58,59,66 and 68 DNA were undetectable. Specimen (Source)Anatomical Location / LateralityCollection Method / Volume Collection TimeReceived QzesNOYHB34/22/2024 4:23 AM EST04/21/2023 4:24 AM EST Narrative Authorizing ProviderResult TypeResult StatusMadeleine Zhou MEDEL BLOOD ORDERABLESFinal ResultPerforming OrganizationAddressCity/State/ZIP CodePhone Number [facility] [address], [address] [place] [address] from Last 3 Months or Most Recently Relevant to Health Maintenance Insurance Care Teams Team MemberRelationshipSpecialtyStart DateEnd Date Eleazar Benavides MD [address] [place] [phone] PCP - GeneralFamily Svermlud38/23/24
--- OUTSIDE RECORDS SUMMARY | 2025-01-26 10:24 | XMS_ITS | Clinical Summary ---
Author Organization [facility] Address [address] [place] [address] Care Team Providers Care Internet Consultant Name Role Phone Unavailable Primary Care Provider Unavailabl e Allergies Active AllergyReactionsCriticalityNoted DateCommentsDiclofenacHallucinations 05/17/20240525Nsfzyxzsv96/09/0364Qvoywpvp70/19/2834DshlrsfxSdyrtic43/01/2011 Medications MedicationSigDispense QuantityRefillsLast FilledStart DateEnd DateStatus ALPRAZolam [...] DateDUB (dysfunctional uterine bleeding)01/11/2025 Pelvic pain in riypgv3501/11/2025Menorrhagia with irregular cycle01/11/2025Neck pain01/02/2023 Encounters DateTypeDepartmentCare HftwHpzcgxqxduh51/27/2025Orders Only [facility] [address] [place] [address] Dary Castaneda MA 01/11/2025 1:30 PM EDTProcedure Visit [facility] [address] [place] [place] [address] Chinmay Means DO DUB (dysfunctional uterine bleeding); Menorrhagia with irregular cycle; Pelvic pain in jemqdm4501/11/2025Telephone [facility] [address] [place] [phone] Chinmay Means DO 01/10/2025External Result Encounter [facility] External Department Unsolicited Chinmay Means DO 12/06/2024 10:30 AM EDTConsult [facility] [address] [facility] [place] [phone] Chinmay Means DO DUB (dysfunctional uterine bleeding); Dysmenorrhea; Menorrhagia with irregular cycle; PCOS (polycystic ovarian syndrome)12/06/2024amboo flowsheet [facility] [address] [facility] [place] [address] Chinmay Means DO from Last 3 Months Family History Medical HistoryRelationNameCommentsAnxiety disorderMotherThroat cancerMother RelationNameStatusCommentsFatherAliveMotherAlive Social History Tobacco UseTypesPacks/DayYears UsedDateSmoking Tobacco: Every DayCigarettes Smokeless Tobacco: Never Tobacco Cessation:Ready to Q uit: Not Asked; Counseling Given: Not Answered Alcohol UseStandard Drinks/WeekCommentsYes0 (1 standard drink = 0.6 oz pure alcohol)CommentsNoSex and Gender InformationValueDate RecordedSex Assigned at BirthNot on fileLegal NwrQifuij46/15/2023 10:13 PM EDTGender IdentityNot on fileSexual OrientationNot on file Last Filed Vital Signs Vital SignReadingTime TakenCommentsBlood Vxoffrtc828/8201/11/2025 1:51 PM EDT Pulse--Temperature--Respiratory Rate--Oxygen Saturation--Inhaled Oxygen Concentration--Xywpcd78 kg (167 lb 8 oz)01/11/2025 1:51 PM EDTHeight--Body Mass Index-- Plan of Treatment DateTypeDepartmentCare Team (Latest Contact Info)Vwwhvldstic37/24/2025 1:30 PM ESTOffice Visit NOMBhupendra RAINEY [address] [facility] [place] [address] Meagan Cedeno PA [address] [facility] [address] [place], [place] [id number] Procedures Procedure NamePriorityDate/TimeAssociated DiagnosisCommentsENDOMETRIAL BIOPSY Nvfvxgv2401/11/2025 2:11 PM EDT DUB (dysfunctional uterine bleeding) Menorrhagia with irregular cycle POCT , LRKAJOkxzegw62/15/2025 2:01 PM EDT DUB (dysfunctional uterine bleeding) Menorrhagia with irregular cycle Pelvic pain in female ENDOMETRIAL BIOPSY, SOATXCSSNfrpnyb78/15/2025 12:00 AM EDT DEHYDROEPIANDROSTERONE, QKlsdlkl11/14/2025 9:16 AM EDT HEMOGLOBIN J9JKpdsgyi45/14/2025 9:16 AM EDT VJUzwfpge65/14/2025 9:16 AM EDT PBRBsxgjgc20/14/2025 9:16 AM EDT QUSZstgbxu37/14/2025 9:16 AM EDT DHEA FJSQDHCFskmpur60/14/2025 9:16 AM EDT SERUM B HCG, 3RD I.S. ([place])Gbgjqis6601/10/2025 9:16 AM EDT CBC WITH AUTO QHNXENXKKHHSRauchcm78/14/2025 9:16 AM EDT from Last 3 Months Results * Endometrial biopsy (01/11/2025 2:11 PM EDT) Ashwini Butcher LPN - 01/11/2025 2:11 PM EDT Ashiwni Duncan LPN 01/11/2025 2:54 PM Endometrial biopsy [...] well, no immediate complications Authorizing ProviderResult TypeResult StatusCorey ClaryTexas County Memorial Hospital CLINIC/BEDSIDE ORDERABLESFinal Result * POCT , urine manually resulted (01/11/2025 2:01 PM EDT)ComponentValue Ref RangeTest MethodAnalysis TimePerformed AtPathologist SignaturePreg Test, UrNegativeNegativeSpecimen (Source)Anatomical Location / LateralityCollection Method / VolumeCollection TimeReceived BwjgTcsvb67/15/2025 2:01 PM EDT Narrative Authorizing ProviderResult TypeResult StatusCorey Clary DOPOINT OF CARE TEST ENTER/EDIT ORDERABLESFinal Result * ENDOMETRIAL BIOPSY, EXTERNAL (01/11/2025 12:00 AM EDT) Narrative Authorizing ProviderResult TypeResult StatusCorey Clary DOLAB CYTOLOGY ORDERABLESFinal ResultPerforming OrganizationAddressCity/State/ZIP CodePhone Number EXTERNAL LAB * DEHYDROEPIANDROSTERONE, S (01/10/2025 9:16 AM EDT)ComponentValueRef RangeTest MethodAnalysis TimePerformed AtPathologist SignatureDEHYDROEPIANDROSTERONE, S 3.4<10 ng/mLPROMEDICAComment: ADDITIONAL INFORMATION This test was developed and its performance characteristics determined by [facility] in a manner consistent with CLIA requirements. This test has not been cleared or approved by the U.S. Food and Drug Administration. Test Performed by: [facility] - [address] [address] Chemical Educator: Ever Francis Ph.D.; CLIA# [id number] Specimen (Source)Anatomical Location / LateralityCollection Method / [...] trophoblastic or nontrophoblastic neoplasms. ?? PERFORMED AT [facility] [address],[place] [address] Specimen (Source)Anatomical Location / LateralityCollection Method / Volume Collection TimeReceived Time01/10/2025 9:16 AM EDT1 1:14 PM EDT Narrative Authorizing ProviderResult TypeResult StatusCorey Clary HEARD BLOOD ORDERABLES Final ResultPerforming OrganizationAddressCity/State/ZIP CodePhone Number [facility] * (ABNORMAL) CBC auto differential (01/10/2025 9:16 AM EDT)ComponentValueRef RangeTest MethodAnalysis TimePerformed AtPathologist SignatureWHITE BLOOD CELL COUNT, WBC10.14 - 11 x10E9/LPROMEDICARED BLOOD CELL COUNT, RBC4.583.8 - 5.2 X10E12/TDMHPQXESWJEPGSBTMWB52.911.7 - 15.5 g/zQDOXWOIVGQDUDXYMAJOY40.335 - 47 %PROMEDICAMEAN CELL VOLUME, AKL6390 - 100 fLPROMEDICAMEAN CELL HEMOGLOBIN, MCH 32.527 - 34 pgPROMEDICAMEAN CELL HEMOGLOGIN CONCENTRATION, MCHC34.432 - 36 g/dLPROMEDICARED CELL DISTRIBUTION WIDTH, RDW14.411.5 - 15 %PROMEDICAPLATELET RWFDE579481 - 450 X10E9/LPROMEDICAMEAN PLATELET VOLUME, MPV9.57 - 12 fL [place]% IHBEKAAOJYY80.9%[facility]% FDISRNYSTBA05.8%[facility]% MONOCYTES8.2% [place]% EOSINOPHILS1.5%[facility]% BASOPHILS0.6%PROMEDICAABSOLUTE NEUTROPHIL 7.3(H)1.5 - 6.6 10*3/uLPROMEDICAABSOLUTE LYMPHOCYTE1.71.0 - 3.5 10*3/uL [place]ICAABSOLUTE MONOCYTE0.80.0 - 0.9 10*3/uLPROMEDICAABSOLUTE EOSINOPHIL0.2 0.0 - 0.4 10*3/uLPROMEDICAABSOLUTE BASOPHIL0.10.0 - 0.2 10*3/uLPROMEDICA DIFFERENTIAL TYPEAUTOMATED DIFFERENTIALPROMEDICAComment: ?? PERFORMED AT [facility] [address],[place] [address] The copy-to physician of this order is ZAID Simms Specimen (Source)Anatomical Location / LateralityCollection Method / Volume Collection TimeReceived Time01/10/2025 9:16 AM EDT1 1:14 PM EDT Narrative Authorizing ProviderResult TypeResult StatusCorey Clary DOLAB BLOOD ORDERABLES Final ResultPerforming OrganizationAddressCity/State/ZIP CodePhone Number [facility] * DHEA-sulfate (01/10/2025 9:16 AM EDT)ComponentValueRef RangeTest Method Analysis TimePerformed AtPathologist SignatureDHEA [id number] - 266 ug/dLPROMEDICA Comment: ?? PERFORMED AT [address],[place] [address] Specimen (Source)Anatomical Location / LateralityCollection Method / Volume Collection TimeReceived Time01/10/2025 9:16 AM EDT1 1:14 PM EDT Narrative Authorizing ProviderResult TypeResult StatusCorey Clary DOLAB BLOOD ORDERABLES Final ResultPerforming OrganizationAddressCity/State/ZIP CodePhone Number [facility] * TSH (01/10/2025 9:16 AM EDT)ComponentValueRef RangeTest MethodAnalysis Time Performed AtPathologist SignatureFREE T41.100.61 - 1.60 ng/dLPROMEDICATSH1.26 0.49 - 4.67 uIU/mLPROMEDICAComment: ?? PERFORMED AT [address],[place] [address] Specimen (Source)Anatomical Location / LateralityCollection Method / [...] in vivo glycation rates are ??affected. AVERAGE VDVBWZH51ug/dLPROMEDICAComment: ?? [address]FORMED [address],[place] [address] Specimen (Source)Anatomical Location / LateralityCollection Method / Volume Collection TimeReceived Time01/10/2025 9:16 AM EDT1 1:14 PM EDT Narrative Authorizing ProviderResult TypeResult StatusCorey Clary DOLAB BLOOD ORDERABLES Final ResultPerforming OrganizationAddressCity/State/ZIP CodePhone Number [facility] * Luteinizing hormone (01/10/2025 9:16 AM EDT)ComponentValueRef RangeTest Method Analysis TimePerformed AtPathologist SignatureLUTEINIZING GUZQHGK35.0mIU/mL [place]ICAComment: NORMAL FEMALE Follicular ?? 2.1-10.9 ??mIU/mL Mid Cycle ??19.2-103 ?? mIU/mL Luteal ?? 1.2-12.9 ??mIU/mL [place] ??10.9-58.6 ??mIU/mL ?? PERFORMED AT [address],[place] [address] Specimen (Source)Anatomical Location / LateralityCollection Method / Volume Collection TimeReceived Time01/10/2025 9:16 AM EDT1 1:14 PM EDT Narrative Authorizing ProviderResult TypeResult StatusCorey Clary DOLAB BLOOD ORDERABLES Final ResultPerforming OrganizationAddressCity/State/ZIP CodePhone Number [facility] * Follicle stimulating hormone (01/10/2025 9:16 AM EDT)ComponentValueRef Range Test MethodAnalysis TimePerformed AtPathologist SignatureFOLLICLE STIM HORMONE 8.3mIU/mLPROMEDICAComment: NORMAL FEMALE: Luteal ??1.8-5.1 ?mIU/mL Follicular ??3.8-8.8 ?mIU/mL Mid Cycle ??4.5-22.5 ?? mIU/mL [facility] [place] ??16.7-113.6 ??mIU/mL ?? PERFORMED AT [facility] [address],[place] [address] Specimen (Source)Anatomical Location / LateralityCollection Method / Volume Collection TimeReceived Time01/10/2025 9:16 AM EDT1 1:14 PM EDT Narrative Authorizing ProviderResult TypeResult StatusCorey Clary DOLAB BLOOD ORDERABLES Final ResultPerforming OrganizationAddressCity/State/ZIP CodePhone Number [facility] from Last 3 Months Insurance
--- NOTE | 2025-01-26 10:58 | XR_ITS ---
The [address] [address] Patient Name: UBALDO CHOE MRN: [id number] date: 1990 Sex: F Assigned Patient Location: [facility] Current Patient Location: [facility] Accession/Order Number: [id number] Exam Date: 01/26/2025 10:53 Report Date: 01/26/2025 12:49 At the request of: JESÚS GOSS DO Procedure: XR chest 2V PA AND LATERAL CHEST: CLINICAL HISTORY: Preoperative clearance. Tobacco use. COMPARISON: None There is no focal parenchymal consolidation, effusion or pneumothorax. The cardiac, hilar and mediastinal silhouettes are within normal limits. There is no vascular congestion. The visualized bony thorax is intact. There is subtle thoracolumbar dextroscoliotic curvature. XR/XR chest 2V IMPRESSION: NO ACUTE CARDIOPULMONARY ABNORMALITY. Impression dictated by: Ashwini Leslie M.D. 01/26/2025 12:49 PM Dictation Location: [place] [address] Electronically authenticated by: [id number] Y Date: 01/26/2025 12:49
== END 2025-01-26 10:22 | disposition home or self-care (01) ==
LOC: PST 10:22
PROVIDERS: Visit Provider Obstetrics & Gynecology
DX: Z01.810 Encounter for preprocedural cardiovascular examination (principal); N92.0 Excessive and frequent menstruation with regular cycle; N93.9 Abnormal uterine and vaginal bleeding, unspecified; R10.30 Lower abdominal pain, unspecified
CPT/HCPCS: 71046

== ENCOUNTER 2025-02-10 08:58 | Day surgery (SDC) | payer OTHER, SELFPAY ==
[2025-01-26 10:48] VITALS: BP 110/76; PULSE 81; TEMP 36.3; O2SAT 99; BMI 27.3
--- OUTSIDE RECORDS SUMMARY | 2025-02-10 09:00 | XMS_ITS | Clinical Summary ---
Author Organization Chinese Online tem Address [id number] [address] [place] [address] Care Team Providers Care Retirement Plan Specialist Name Role Phone Eleazar Benavides MD Primary Care Provider [phone] Allergies Active AllergyReactionsCriticalityNoted UdpwKlgdegrdGfdufsxg06/19/2015Ketorolac 12/06/2020 Medications MedicationSigDispense QuantityRefillsLast FilledStart DateEnd DateStatus [...] left-sided intrarenal stone. She did request some [place] to have on hand for breakthrough pain until she can get in with her family doctor to further investigate it. OARRS reviewed. I did send in a short prescription Encounters DateTypeDepartmentCare RsmnEelobteaggc26/14/2025Travelfrom Last 3 Months Family History Medical HistoryRelationNameCommentsArthritisFatherGoutFatherAnxiety disorder MotherCancerMotherthroatBreast cancerNeg HxRelationNameStatusCommentsFatherAlive MotherAlive Social History Tobacco UseTypesPacks/DayYears UsedDateSmoking Tobacco: Every DayCigarettes Smokeless Tobacco: Never Tobacco Cessation:Ready to Q uit: No; Counseling Given: Yes Alcohol UseStandard Drinks/WeekCommentsNo0 (1 standard drink = 0.6 oz pure alcohol)AUDIT-CAnswerDate RecordedFrequency of Alcohol ConsumptionNever 12/28/2019Average Number of DrinksNot on file12/28/2019Frequency of Binge DrinkingNot on file12/28/2019ChildcareAnswerDate RecordedChildcareUnknown 09/08/2018EmploymentAnswerDate CbiswdfyPlrvfjlyfaOdijgmq18/12/2019Hunger ScreeningAnswerDate RecordedWithin the past 12 months we worried whether our food would run out before we got money to buy more.Never True03/21/2024Within the past 12 months the food we bought just didn't last and we didn't have money to get more.Never True4Purpose - LifeAnswerDate RecordedPurpose and direction in pqucVafnwmy05/15/2021CommentsNoSex and Gender Information ValueDate RecordedSex Assigned at BirthNot on fileLegal AfdYgceur39/06/2015 11:38 AM EDTGender IdentityNot on fileSexual OrientationNot on file Last Filed Vital Signs Vital SignReadingTime TakenCommentsBlood Uoqxsznt484/9103/21/2024 8:35 AM EST Ilgtg518603/21/2024 8:35 AM QHBEnojdjjtshf02.7 ??C (98.1 ??F)03/21/2024 8:35 AM ESTRespiratory Nhpj328305/22/2023 8:35 AM ESTOxygen Dkzeiqhwhl32%03/21/2024 8:35 AM ESTInhaled Oxygen Concentration--Cirotf24.9 kg (185 lb)01/31/2024 7:53 PM EST Oglkch152.6 cm (5' 6 )01/31/2024 7:53 PM ESTBody Mass Index29.8601/31/2024 7:53 PM EST Plan of Treatment Health MaintenanceDue DateLast DoneCommentsDepression Iwozcyuwl92/19/2000 DTaP,Tdap and Td Vaccines (1 - Tdap)01/15/2007Influenza Tkkzyzd6211/28/2024dult BMI Gdvjsxesw05/05/2023Tobacco Leuferjtf03/4Pap Smear 701/, 04/20/2023 Medical Devices ExplantedTypeAreaManufacturerDevice IdentifierShelf Expiration DateModel / Serial / LotStent Uret 6fr 26cm Pgtl Crv Tpr Tip Bldr Mrk Lp Lg Inr Lum Rpl [id number] - [id number] - [id number] Implanted:Qty: 1 on 12/13/2020 by Yong Peterson MD at [facility] Explanted:Qty: 1 on 12/20/2020 by Yong Peterson MD at [facility] UreterPHOENIX SCIENTIFIC [id number] / [id number] / [id number] Procedures Procedure NamePriorityDate/TimeAssociated DiagnosisCommentsBASIC METABOLIC PANEL Cljhrov6201/10/2025 9:16 AM EDT Overweight Insomnia, unspecified Personal history of diseases of the blood and blood-forming organs and certain disorders involving the immune mechanism LIPID GPZZGQEBnfelbi40/14/2025 9:16 AM EDT Overweight Insomnia, unspecified Personal history of diseases of the blood and blood-forming organs and certain disorders involving the immune mechanism DEHYDROEPIANDROSTERONE, WGCTOSubzfct55/14/2025 9:16 AM EDT Polycystic ovarian syndrome DHEA-SUDVGSQGzszwku73/14/2025 9:16 AM EDT Polycystic ovarian syndrome HEMOGLOBIN G5IFjnkjyz25/14/2025 9:16 AM EDT Polycystic ovarian syndrome LUTEINIZING ZBOLWEPQqueiaj03/14/2025 9:16 AM EDT Polycystic ovarian syndrome FOLLICLE STIMULATING ATDOQXNQzdclqb88/14/2025 9:16 AM EDT Polycystic ovarian syndrome CBC WITH AUTO VNFHKGKVSHXYWandknn24/14/2025 9:16 AM EDT Polycystic ovarian syndrome THYROID PROFILE INCLUDES TSH BB7Udlwtot99/14/2025 9:16 AM EDT Polycystic ovarian syndrome HCG-BETA, DXEUMJjgkfbo85/14/2025 9:16 AM EDT Polycystic ovarian syndrome HIGH RISK HPV W/ZNFOCbcvkxk93/22/2024 4:23 AM EST Encounter for gynecological examination (general) (routine) without abnormal findings from Last 3 Months or Most Recently Relevant to Health Maintenance Results * Dehydroepiandrosterone, Serum (DHEA) (01/10/2025 9:16 AM EDT)ComponentValueRef RangeTest MethodAnalysis TimePerformed AtPathologist Signature DEHYDROEPIANDROSTERONE, S3.4<10 ng/mL2025 8:43 AM [facility] LABORATORIESComment: ADDITIONAL INFORMATION This test was developed and its performance characteristics determined by [facility] in a manner consistent with CLIA requirements. This test has not been cleared or approved by the U.S. Food and Drug Administration. Test Performed by: [place] [address] Hosiery Pairer: Ever Francis Ph.D.; CLIA# [id number] Specimen (Source)Anatomical Location / LateralityCollection Method / Volume Collection TimeReceived TimeBloodVenous blood / UnknownVenipuncture / Unknown 01/10/2025 9:16 AM EDT1 9:20 AM EDT Narrative Authorizing ProviderResult TypeResult StatusCorey R Clary DOLAB BLOOD ORDERABLES Final ResultPerforming OrganizationAddressCity/State/[facility] CodeAdventhealth [facility]and Number [facility] [address] * Thyroid profile includes TSH FT4 (01/10/2025 9:16 AM EDT)ComponentValueRef RangeTest MethodAnalysis TimePerformed AtPathologist SignatureFREE T41.100.61 - 1.60 ng/dL01/10/2025 2:22 PM [facility] LABORATORYTSH1.26 0.49 - 4.67 uIU/mL01/10/2025 2:22 PM [facility] Specimen (Source)Anatomical Location / LateralityCollection Method / Volume Collection TimeReceived TimeBloodVenous blood / UnknownVenipuncture / Unknown 01/10/2025 9:16 AM EDT1 9:20 AM EDT Narrative Authorizing ProviderResult TypeResult StatusCorey R Clary DOLAB BLOOD ORDERABLES Final ResultPerforming OrganizationAddressCity/State/ZIP CodePhone Number [facility] [address] [place] [address], * (ABNORMAL) CBC auto differential (01/10/2025 9:16 AM EDT)ComponentValueRef RangeTest MethodAnalysis TimePerformed AtPathologist UsykpygyuCHR37.14 - 11 x10E9/L1 1:55 PM [facility] LABORATORYRBC Count4.58 3.8 - 5.2 X10E12/L1 1:55 PM [facility] Kovmrbsija67.911.7 - 15.5 g/dL01/10/2025 1:55 PM [facility] ZZQURWRBVOWeqipvdzii10.335 - 47 %01/10/2025 1:55 PM [facility] DHLWZWNSTCTDQ3693 - 100 fL01/10/2025 1:55 PM [facility] IAOTEEEUETHXM60.527 - 34 pg01/10/2025 1:55 PM [facility] BANOOZFCOMVHWP02.432 - 36 g/dL01/10/2025 1:55 PM [facility] VAJGVIAEOAYIQ24.411.5 - 15 %01/10/2025 1:55 PM [facility] LABORATORYPlatelet Pomyi073957 - 450 X10E9/L1 1:55 PM EDT [facility]ORATORYMPV9.57 - 12 fL01/10/2025 1:55 PM [facility] LABORATORYNeutrophils %72.9%01/10/2025 1:55 PM [facility] LABORATORYLymphocytes %16.8%01/10/2025 1:55 PM [facility] LABORATORYMonocytes %8.2%01/10/2025 1:55 PM [facility] LABORATORYEosinophils %1.5%01/10/2025 1:55 PM [facility] LABORATORYBasophils %0.6%01/10/2025 1:55 PM [facility] LABORATORYNeutrophils Absolute (A)7.3(H)1.5 - 6.6 10*3/uL 01/10/2025 1:55 PM [facility] LABORATORYLymphocytes Absolute 1.71.0 - 3.5 10*3/uL01/10/2025 1:55 PM [facility] Monocytes Absolute0.80.0 - 0.9 10*3/uL01/10/2025 1:55 PM [facility] LABORATORYEosinophils Absolute0.20.0 - 0.4 10*3/uL01/10/2025 1:55 PM [facility] LABORATORYBasophils Absolute0.10.0 - 0.2 10*3/uL 01/10/2025 1:55 PM [facility] LABORATORYDifferential Type AUTOMATED OXGMPUFDYYPV89/14/2025 1:55 PM [facility] LABORATORYSpecimen (Source)Anatomical Location / LateralityCollection Method / VolumeCollection TimeReceived TimeBloodVenous blood / UnknownVenipuncture / Kxvtvok9101/10/2025 9:16 AM EDT1 9:20 AM EDT Narrative Authorizing ProviderResult TypeResult StatusCorey R Clary DOLAB BLOOD ORDERABLES Final ResultPerforming OrganizationAddressCity/State/ZIP CodePhone Number [facility] [address] [place] [id number], * DHEA-sulfate (01/10/2025 9:16 AM EDT)ComponentValueRef RangeTest Method Analysis TimePerformed AtPathologist SignatureDHEA V37835 - 266 ug/dL 01/10/2025 2:18 PM [facility] LABORATORYSpecimen (Source) Anatomical Location / LateralityCollection Method / VolumeCollection Time Received TimeBloodVenous blood / UnknownVenipuncture / Frorral5901/10/2025 9:16 AM EDT1 9:20 AM EDT Narrative Authorizing ProviderResult TypeResult StatusCorey R Clary DOLAB BLOOD ORDERABLES Final ResultPerforming OrganizationAddressCity/State/ZIP CodePhone Number [facility] [address] [place] [address], * hCG, quantitative, (01/10/2025 9:16 AM EDT)ComponentValueRef Range Test MethodAnalysis TimePerformed AtPathologist SignatureSERUM B HCG,3RD I.S. <5mIU/mL01/10/2025 2:06 PM EDTTPEOPLES [facility] LABORATORYSpecimen (Source)Anatomical Location / LateralityCollection Method / VolumeCollection TimeReceived TimeBloodVenous blood / UnknownVenipuncture / Hokhfgk0001/10/2025 9:16 AM EDT1 9:20 AM EDT Narrative [facility] - 01/10/2025 2:06 PM EDT [...] or nontrophoblastic neoplasms. Authorizing ProviderResult TypeResult StatusCorey R Clary DOLAB BLOOD ORDERABLES Final ResultPerforming OrganizationAddressCity/State/ZIP CodePhone Number [facility] [address] [place] [address], * Hemoglobin A1c (01/10/2025 9:16 AM EDT)ComponentValueRef RangeTest Method Analysis TimePerformed AtPathologist SignatureHEMOGLOBIN A1C4.84.4 - 5.6 % 01/10/2025 3:33 PM [facility] LABORATORYComment: ?ADA Guidelines ?Result ?HgbA1c ? Normal : ? less than 5.7 % ? Prediabetes : ?5.7 % ??to 6.4 % Diabetes : > 6.4 % ?Use with caution in patients with abnormal hemoglobin variants as ??the half-life of red blood cells and in vivo glycation rates are ??affected. EST. AVERAGE TCPOOML86ge/dL01/10/2025 3:33 PM [facility] LABORATORYSpecimen (Source)Anatomical Location / LateralityCollection Method / VolumeCollection TimeReceived TimeBloodVenous blood / UnknownVenipuncture / Xeeijie0101/10/2025 9:16 AM EDT1 9:20 AM EDT Narrative Authorizing ProviderResult TypeResult StatusCorey R Clary DOLAB BLOOD ORDERABLES Final ResultPerforming OrganizationAddressCity/State/ZIP CodePhone Number [facility] [address] [place] [address], * Luteinizing hormone (01/10/2025 9:16 AM EDT)ComponentValueRef RangeTest Method Analysis TimePerformed AtPathologist SignatureLUTEINIZING TEQREFP40.0mIU/mL 01/10/2025 2:46 PM [facility] LABORATORYSpecimen (Source) Anatomical Location / LateralityCollection Method / VolumeCollection Time Received TimeBloodVenous blood / UnknownVenipuncture / Ovqmwux1601/10/2025 9:16 AM EDT1 9:20 AM EDT Narrative [facility] - 01/10/2025 2:46 PM EDT NORMAL FEMALE Follicular ?? 2.1-10.9 ??mIU/mL Mid Cycle ??19.2-103 ?? mIU/mL Luteal ?? 1.2-12.9 ??mIU/mL Post Gabby ??10.9-58.6 ??mIU/mL Authorizing ProviderResult TypeResult StatusCorey Kathleen HEARD BLOOD ORDERABLES Final ResultPerforming OrganizationAddressCity/State/ZIP CodePhone Number [facility] [address] [place] [address], * Follicle stimulating hormone (01/10/2025 9:16 AM EDT)ComponentValueRef Range Test MethodAnalysis TimePerformed AtPathologist SignatureFOLLICLE STIM HORMONE 8.3mIU/mL01/10/2025 2:45 PM [facility] LABORATORYSpecimen (Source)Anatomical Location / LateralityCollection Method / VolumeCollection TimeReceived TimeBloodVenous blood / UnknownVenipuncture / Stqmtzd6601/10/2025 9:16 AM EDT1 9:20 AM EDT Narrative [facility] - 01/10/2025 2:45 PM EDT NORMAL FEMALE: Luteal ??1.8-5.1 ?mIU/mL Follicular ??3.8-8.8 ?mIU/mL Mid Cycle ??4.5-22.5 ?? mIU/mL Post Gabby ??16.7-113.6 ??mIU/mL Authorizing ProviderResult TypeResult StatusCorey Kathleen Means DOLAB BLOOD ORDERABLES Final ResultPerforming OrganizationAddressCity/State/ZIP CodePhone Number [facility] [address] [place] [address], * Lipid profile (01/10/2025 9:16 AM EDT)ComponentValueRef RangeTest Method Analysis TimePerformed AtPathologist GdkgaoemcSQSWQPXZOXJ104661 - 200 mg/dL 01/10/2025 2:20 PM [facility] MTPXPWRHSRWBFQVLIRRFAG44726 - 150 mg/dL01/10/2025 2:20 PM [facility] LABORATORYHDL IASTBYOYSWN56>39 mg/dL01/10/2025 2:20 PM [facility] LABORATORYComment: HDL <40 mg/dL - High Risk HDL > or = 40mg/dL- Desirable HDL >60 mg/dL - Negative Risk LDL (CALC)112<130 mg/dL01/10/2025 2:20 PM [facility] Comment: LDL <100 mg/dL - Desirable LDL >160 mg/dL - High Risk CHOLESTEROL:HDL4.01.0 - 5.010 2:20 PM [facility] LABORATORYVERY LOW THQVAWQTETB394 - 30 mg/dL01/10/2025 2:20 PM [facility] LABORATORYSpecimen (Source)Anatomical Location / Laterality Collection Method / VolumeCollection TimeReceived TimeBloodVenous blood / UnknownVenipuncture / Fsguyws0101/10/2025 9:16 AM EDT1 9:20 AM EDT Narrative Authorizing ProviderResult TypeResult StatusTodd Jose Aguilar FEED AND FARM MANAGEMENT ADVISER-CNPLAB BLOOD ORDERABLESFinal ResultPerforming OrganizationAddressCity/State/ZIP CodePhone Number [facility] [address] [place] [address], * Basic Metabolic Panel (01/10/2025 9:16 AM EDT)ComponentValueRef RangeTest MethodAnalysis TimePerformed AtPathologist UtoccgzrjLHVZKZ521744 - 146 mmol/L 01/10/2025 2:20 PM [facility] LABORATORYPOTASSIUM4.33.5 - 5.0 mmol/L1 2:20 PM [facility] YQLSHTFNVAYNQZLIYB11881 - 109 mmol/L1 2:20 PM [facility] LABORATORYCARBON QUMMFRQ0849 - 32 mmol/L1 2:20 PM [facility] LABORATORYANION FXZ381 - 15 mmol/L1 2:20 PM [facility] LABORATORYBLOOD UREA AGHGPMIT182 - 23 mg/dL01/10/2025 2:20 PM [facility] LABORATORYCREATININE0.790.40 - 1.00 mg/dL01/10/2025 2:20 PM [facility] LABORATORYComment:METHOD TRACEABLE TO IDMS VMSHPRKGWOLUMLD4206 - 99 mg/dL01/10/2025 2:20 PM [facility] LABORATORYCALCIUM9.38.5 - 10.5 mg/dL01/10/2025 2:20 PM [facility] LABORATORYEGFR Non-Race Dependent>90>=60 ml/min/1.73sq.m1 2:20 PM [facility] LABORATORYComment: Reported eGFR is based on the CKD-EPI 2020 equation that does not use a race coefficient. Specimen (Source)Anatomical Location / LateralityCollection Method / Volume Collection TimeReceived TimeBloodVenous blood / UnknownVenipuncture / Unknown 01/10/2025 9:16 AM EDT1 9:20 AM EDT Narrative Authorizing ProviderResult TypeResult StatusTokavin Aguilar FEED AND FARM MANAGEMENT ADVISER-CNPLAB BLOOD ORDERABLESFinal ResultPerforming OrganizationAddressCity/State/ZIP CodePhone Number [facility] [address] [place] [address], * High risk HPV w/jm (04/20/2023 4:23 AM EST)ComponentValueRef RangeTest MethodAnalysis TimePerformed AtPathologist SignatureHpv specimen typeThinPrep 04/21/2023 4:24 AM ESTSUNQUESTHpv 16NegativeNegative^Pygpdtyr45/24/2024 6:32 AM [facility] LABHpv 18NegativeNegative^Kolktzio37/24/2024 6:32 AM [facility] LABOther high risk hpvNegative Negative^Hmlndbay52/24/2024 6:32 AM [facility] LABComment: HPV types 31,33,35,39,45,52,56,58,59,66 and 68 DNA were undetectable. Specimen (Source)Anatomical Location / LateralityCollection Method / Volume Collection TimeReceived JyqzSPQAF00/22/2024 4:23 AM EST04/21/2023 4:24 AM EST Narrative Authorizing ProviderResult TypeResult StatusMadeleine Zhou MEDEL BLOOD ORDERABLESFinal ResultPerforming OrganizationAddressCity/State/ZIP CodePhone Number [facility] [address] [place] [address] from Last 3 Months or Most Recently Relevant to Health Maintenance Insurance Care Teams Team MemberRelationshipSpecialtyStart DateEnd Date Eleazar Benavides MD [address] Y[address] [place] [phone] [facility]/24
--- OUTSIDE RECORDS SUMMARY | 2025-02-10 09:01 | XMS_ITS | Encounter Summary ---
Author Organization [facility] Address [address], [address] [place] [address] Care Team Providers Care Drywall Hanger Name Role Phone ErnestoBoni franco MAINTENANCE SUPERVISOR - KILN BURNER HELPER Primary Care Provider Reason for Visit * ReasonOnset DateCommentsMedication Vswxzx5902/07/2025 Encounter Details DateTypeDepartmentCare Team (Latest Contact Info)Wxilqxlttai73/11/2025Refill [facility] [address] [place] [address] [place] [address] [facility] [address] [place], [place] [id number] Medication Refill Social History Tobacco UseTypesPacks/DayYears UsedDateSmoking Tobacco: Every ZfsCkuyltbigb67 Smokeless Tobacco: Never Comments:Patient has decreas ed smoking usage Alcohol UseStandard Drinks/WeekCommentsNot Currently0 (1 standard drink = 0.6 oz pure alcohol)[facility] UtilitiesAnswerDate RecordedIn the past 12 months has the electric, gas, oil, or water company threatened to shut off services in your home?No05/17/2024Overall Financial Resource Strain (CARDIA)AnswerDate Recorded How hard is it for you to pay for the very basics like food, housing, medical care, and heating?Not hard at all05/04/2023HQ-2AnswerDate RecordedPHQ-9 Total Uwmxl070Hunger Vital SignAnswerDate RecordedWithin the past 12 months, [...] steady place to sleep or slept in [facility] (including now)?No05/04/2023Housing Stability Vital SignAnswerDate RecordedIn the last 12 months, was there a time when you were not able to pay the mortgage or rent on time?No05/17/2024In the past 12 months, how many times have you moved where you were living? At any time in the past 12 months, were you homeless or living in a chcf (including now)?No05/17/2024Food InsecurityAnswerDate RecordedWithin the past 12 months, you worried that your food would run out before you got the money to buy more.Within the past 12 months, the food you bought just didn't last and you didn't have money to get more.CommentsNoSex and Gender InformationValueDate RecordedSex Assigned at BirthNot on fileLegal Sex Oawxif9205/09/2012 4:09 PM ESTGender IdentityNot on fileSexual OrientationNot on filedocumented as of this encounter Plan of Treatment DateTypeDepartmentCare Team (Latest Contact Info)Ztteekgmcxv87/25/2025 1:00 PM ESTOffice [place] [address] Boni [place]ilar [place] [address] 3 month f/udocumented as of this encounter Visit Diagnoses Diagnosis Medication management Encounter for other specified aftercare Anxiety Anxiety state, unspecified documented in this encounter Care Teams Team MemberRelationshipSpecialtyStart DateEnd Date Boni Aguilar, INGRID - SAROJ PCP - General05/19/18documented as of this encounter
--- OUTSIDE RECORDS SUMMARY | 2025-02-10 09:01 | XMS_ITS | Clinical Summary ---
Author Organization [facility] Address [address], [address] [place] [address] Care Team Providers Care Rheumatology Nurse Name Role Phone Boni Aguilar KENNEL OPERATOR - ELEMENTARY TEACHER Primary Care Provider Allergies Active AllergyReactionsCriticalityNoted DateCommentsDiclofenacHallucinations 05/17/20246877Jeahgwqoq18/09/0970Nbrgvvvj28/19/2015TramadolOther (See Comments) 03/30/2010 Medications MedicationSigDispense QuantityRefillsLast FilledStart [...] lungs every 6 hours as needed for Hdqhmzvk62/04/2024 Active oxyBUTYnin (DITROPAN-XL) 5 MG extended release [...] BY MOUTH EVERY DAY 30 capsule 5Active ALPRAZolam (XANAX) 1 MG tablet Indications:Medication management,AnxietyTake 1 tablet by mouth 3 times daily as needed for Sleep for up to 30 days. Max Daily Amount: 3 mg 90 tablet tive HYDROcodone-acetaminophen (NORCO) 5-325 MG per tablet Indications:Chronic bilateral low back pain without sciaticaTake 1 tablet by mouth 2 times daily as needed for Pain for up to 7 days. Intended supply: 7 days. Take lowest dose possible to manage pain Max Daily Amount: 2 tablets 14 tablet 5Active phentermine (ADIPEX-P) 37.5 MG tablet Indications:Overweight (BMI 25.0-29.9)Take 1 tablet by mouth every morning (before breakfast) for 30 days. Max Daily Amount: 37.5 mg 30 tablet tive acetaminophen (TYLENOL) 500 MG tablet Indications:Flank painTake 1 tablet by mouth 4 times daily as needed for Pain 360 tablet iscontinued(Side effects) phentermine (ADIPEX-P) 37.5 MG tablet Indications:Overweight (BMI 25.0-29.9)TAKE 1 TABLET BY MOUTH EVERY MORNING FOR 30 DAYS. MAX DAILY AMOUNT: 37.5 MG 30 tablet /01/2025Discontinued(REORDER) ALPRAZolam (XANAX) 1 MG tablet Indications:Medication management,AnxietyTake 1 tablet by mouth 3 times daily as needed for Sleep for up to 30 days. Max Daily Amount: 3 mg 90 tablet /01/2025Discontinued(REORDER) HYDROcodone-acetaminophen (NORCO) 5-325 MG per tablet Indications:Chronic bilateral low back pain without sciaticaTake 1 tablet by mouth 2 times daily as needed for Pain for up to 7 days. Intended supply: 7 days. Take lowest dose possible to manage pain Max Daily Amount: 2 tablets 14 tablet Discontinued(REORDER) HYDROcodone-acetaminophen (NORCO) 5-325 MG per tablet Indications:Chronic bilateral low back pain without sciaticaTake 1 tablet by mouth 2 times daily as needed for Pain for up to 7 days. Intended supply: 7 days. Take lowest dose possible to manage pain Max Daily Amount: 2 tablets 14 tablet Discontinued(REORDER) HYDROcodone-acetaminophen (NORCO) 5-325 MG per tablet Indications:Chronic bilateral low back pain without sciaticaTake 1 tablet by mouth 2 times daily as needed for Pain for up to 7 days. Intended supply: 7 days. Take lowest dose possible to manage pain Max Daily Amount: 2 tablets 14 tablet Discontinued(REORDER) HYDROcodone-acetaminophen (NORCO) 5-325 MG per tablet Indications:Chronic bilateral low back pain without sciaticaTake 1 tablet by mouth 2 times daily as needed for Pain for up to 7 days. Intended supply: 7 days. Take lowest dose possible to manage pain Max Daily Amount: 2 tablets 14 tablet Discontinued(REORDER) Active Problems ProblemNoted DateDiagnosed DatePersonal history of diseases of the blood and blood-forming organs and certain disorders involving the immune mechanism 07/27/2023Increased frequency of iigbyxisk31/22/2024Neck pain01/02/2023Nicotine dependence, cigarettes, makbwdswlvqme28/23/2018Bilateral low back pain without jtdlrixh62/21/2015Gastroesophageal reflux disease without gkwtktueqxf70/21/2015 Restless leg wgiwtfrc31/21/2015nxiety Resolved Problems ProblemNoted DateDiagnosed DateResolved DateWeight loss Encounters DateTypeDepartmentCare GjuyVwdrifcghff30/11/2025Refill [facility] [address] [place] [address] Boni Aguilar, KENNEL OPERATOR - ELEMENTARY TEACHER Medication Zmdljo4002/07/2025Refill [address] [address] Boni Aguilar, KENNEL OPERATOR - ELEMENTARY TEACHER Medication Yicthw0402/07/2025Refill [facility] [address] [place] [address] Zulma Young MD Medication Lmtciv4002/01/2025Refill [address] [address] Boni Aguilar, KENNEL OPERATOR - ELEMENTARY TEACHER Medication Jzkobw8401/25/[address]25[address] [address] Boni Aguilar, KENNEL OPERATOR - ELEMENTARY TEACHER Medication Tkzrzi9301/19/[address]25[address] [address] Boni Aguilar, KENNEL OPERATOR - ELEMENTARY TEACHER Medication Dnfgeu5801/11/2025Results Follow-Up [address] [address] Zulma Young MD 01/11/2025bstract [address] [address] Carmina Bell MA Overweight (BMI 25.0-29.9); Insomnia, unspecified type; History of anemia; Medication management; Anxiety; Chronic bilateral low back pain without sciatica; Lipid /13/[facility]25[facility] [address] [place] [address] Boni Aguilar, KENNEL OPERATOR - ELEMENTARY TEACHER Medication Xsfaam0301/09/2025[facility] [address] [place] [address] Boni Aguilar, KENNEL OPERATOR - ELEMENTARY TEACHER Medication Nhbjpm9801/02/2025[facility] [address] [place] [address] Boni Aguilar, KENNEL OPERATOR - ELEMENTARY TEACHER Medication Kwnona3212/26/2024[facility] [address] [place] [address] Boni Aguilar, KENNEL OPERATOR - ELEMENTARY TEACHER Medication Rcaere7912/19/2024[facility] [address] [place] [address] Boni Aguilar, KENNEL OPERATOR - ELEMENTARY TEACHER Medication Ndhpwh7512/12/2024[facility] [address] [place] [address] Boni Aguilar, KENNEL OPERATOR - ELEMENTARY TEACHER Medication Wunjar0512/12/2024[facility] [address] [place] [address] Boni Aguilar, KENNEL OPERATOR - ELEMENTARY TEACHER Medication Uhhusg7912/11/2024[facility] [address] [place] [address] Boni Aguilar, KENNEL OPERATOR - ELEMENTARY TEACHER Medication Vqjhcn7212/06/2024[facility] [address] [place] [address] Boni Aguilar, KENNEL OPERATOR - ELEMENTARY TEACHER Medication Maayak8711/29/20[address] [address] Boni Aguilar, KENNEL OPERATOR - ELEMENTARY TEACHER Medication Brmqny9511/21/20[address] [address] Boni Aguilar, KENNEL OPERATOR - ELEMENTARY TEACHER Medication Abmtef5011/15/2024 10:30 AM EDTOffice Visit [address] [address] Boni Aguilar, KENNEL OPERATOR - ELEMENTARY TEACHER Chronic bilateral low back pain without sciatica (Primary Dx); Medication management; Anxiety; Overweight (BMI 25.0-29.9)11/12/2024[facility]ly [facility] [address] [place] [place] [phone] Boni Aguilar, INGRID - ELEMENTARY TEACHER Medication Refillfrom Last 3 Months Immunizations ImmunizationAdministration DatesNext DuePneumococcal, PPSV23, PNEUMOVAX 23, (age 2y+), SC/IM, 0.5mL09/19/2016 Family History Medical HistoryRelationNameCommentsArthritisFatherOtherMaternal Grandmother anxietyThyroid DiseaseMaternal GrandmotherCancerMotherThroatOtherMotherrestless leg, anxietyOtherPaternal GrandmotheranxietyRelationNameStatusCommentsFather AliveMaternal GrandmotherMotherAlivePaternal Grandmother Social History Tobacco UseTypesPacks/DayYears UsedDateSmoking Tobacco: Every ZvbHwizdhnsvt04 Smokeless Tobacco: Never Tobacco Cessation:Ready to Q uit: Yes; Counseling Given: Yes Comments:Patient has decreased smoking usage Alcohol UseStandard Drinks/WeekCommentsNot Currently0 (1 standard drink = 0.6 oz pure alcohol)[facility] UtilitiesAnswerDate RecordedIn the past 12 months has the [place], gas, oil, or water myContactCard threatened to shut off services in your home?No05/17/2024Overall Financial Resource Strain (CARDIA)AnswerDate Recorded How hard is it for you to pay for the very basics like food, housing, medical care, and heating?Not hard at all4PHQ-2AnswerDate RecordedPHQ-9 Total Hvoek330Hunger Vital SignAnswerDate RecordedWithin the past 12 months, [...] steady place to sleep or slept in [place] (including now)?No05/04/2023Housing Stability Vital SignAnswerDate RecordedIn the last 12 months, was there a time when you were not able to pay the mortgage or rent on time?No05/17/2024In the past 12 months, how many times have you moved where you were living? At any time in the past 12 months, were you homeless or living in a fdc (including now)?No05/17/2024Food InsecurityAnswerDate RecordedWithin the past 12 months, you worried that your food would run out before you got the money to buy more.Within the past 12 months, the food you bought just didn't last and you didn't have money to get more.CommentsNoSex and Gender InformationValueDate RecordedSex Assigned at BirthNot on fileLegal Sex Sfqyea5505/09/2012 4:09 PM ESTGender IdentityNot on fileSexual OrientationNot on file Last Filed Vital Signs Vital SignReadingTime TakenCommentsBlood Ypiycmjq107/7808/ 10:34 AM EDT Ybomb1043 11:07 AM NELTladqrcsmxc18.8 ??C (98.2 ??F)09/15/2017 12:33 PM EDTRespiratory Tuwo130009/15/2017 12:33 PM EDTOxygen Hlxvdltrmm80%11/15/2024 10:34 AM EDTInhaled Oxygen Concentration--Ujbwui42.3 kg (168 lb 4.8 oz)11/15/2024 10:34 AM SWVPtmysw526.6 cm (5' 5.98 )11/15/2024 10:34 AM EDTBody Mass Index27.18 11/15/2024 10:34 AM EDT Plan of Treatment DateTypeDepartmentCare Team (Latest Contact Info)Pyxupnvmlkb94/25/2025 1:00 PM ESTOffice Visit [facility] [place] [address] Boni Aguilar, KENNEL OPERATOR - ELEMENTARY TEACHER [place], [place] [phone] 3 month f/uHealth MaintenanceDue DateLast DoneCommentsVaricella vaccine (1 of 2 - 13+ 2-dose series)01/15/2001HIV pqotrj9101/15/2003DTaP/Tdap/Td vaccine (1 - Tdap)01/15/2007Hepatitis B vaccine (1 of 3 - 19+ 3-dose series)01/15/2007Pap smear01/15/2009Pneumococcal 0-49 years Vaccine (2 of 2 - PCV)09/19/2017 09/19/2016Cervical cancer alurcq4601/15/2018HPV (without or with Pap)01/15/2018Flu vaccine (#1)10/28/2024OVID-19 Vaccine ( - season)2024Depression Tkgcvf17602/, 05/17/2024Diabetes ujrgte97/, 07/27/2023Hepatitis C amvbknOusbbzpws40/29/2024HPV vaccine (No Doses Required) CompletedHepatitis A vaccineAged OutNo longer eligible based on [...] topic Procedures Procedure NamePriorityDate/TimeAssociated DiagnosisCommentsCBC WITH AUTO ZAVIUXTYGYKPDikxzms25/ Overweight (BMI 25.0-29.9) Insomnia, unspecified type History of anemia LIPID, QPVGGUZLtjmoaw01/14/2025 Lipid screening BASIC METABOLIC PANEL, SPHEZTWMhjnhys80/14/2025 Medication management Anxiety Chronic bilateral low back pain without sciatica HEPATITIS C PUDEVPXBXxjpjif84/29/2024 Need for hepatitis C screening test from Last 3 Months or Most Recently Relevant to Health Maintenance Results * CBC with Auto Differential (01/11/2025)Specimen (Source)Anatomical Location / LateralityCollection Method / VolumeCollection TimeReceived TimeBloodBLOOD SPECIMEN / Unknown Narrative Authorizing ProviderResult TypeResult StatusTokavin Aguilar KENNEL OPERATOR - CNPHEMATOLOGY ORDERABLESFinal Result * Lipid, Fasting (01/10/2025)ComponentValueRef RangeTest MethodAnalysis Time Performed AtPathologist SignatureCholesterol, Jjsnzns030Oylycaoaznyn, Fasting 139ARA1027 - 70 mg/dLLDL Mkjrharekcz427Zynqjfab (Source)Anatomical Location / LateralityCollection Method / VolumeCollection TimeReceived TimeBloodBLOOD SPECIMEN / Dxkzlzv5801/10/2025 Narrative Authorizing ProviderResult TypeResult StatusTokavin Aguilar KENNEL OPERATOR - CNPCHEMISTRY ORDERABLESFinal Result * Basic Metabolic Panel, Fasting (01/10/2025)ComponentValueRef RangeTest Method Analysis TimePerformed AtPathologist SignatureSodiumPotassiumChlorideCO2 Glucose, Vstkcsm95as/dLCalciumBUNCreatinineBUN/Creatinine RatioAnion GapGFR Non->90GFR AmericanSpecimen (Source)Anatomical Location / LateralityCollection Method / VolumeCollection TimeReceived Time BloodBLOOD SPECIMEN / Didavxz9001/10/2025 Narrative Authorizing ProviderResult TypeResult StatusTokavin Aguilar KENNEL OPERATOR - CNPCHEMISTRY ORDERABLESFinal Result * Hepatitis C Antibody (07/27/2023)ComponentValueRef RangeTest MethodAnalysis TimePerformed AtPathologist SignatureAntibody ScreenSpecimen (Source) Anatomical Location / LateralityCollection Method / VolumeCollection Time Received TimeBloodBLOOD SPECIMEN / Ksvvtcp8307/27/2023 Narrative Authorizing ProviderResult TypeResult StatusTokavin Perez CNPIMMUNOLOGY ORDERABLESFinal Result from Last 3 Months or Most Recently Relevant to Health Maintenance Insurance Care Teams Team MemberRelationshipSpecialtyStart DateEnd Date Boni Aguilar, INGRID - ELEMENTARY TEACHER PCP - General05/19/18
--- OUTSIDE RECORDS SUMMARY | 2025-02-10 09:01 | XMS_ITS | Encounter Summary ---
Author Organization [facility] Address [address], [address] [place] [address] Care Team Providers Care Employee Development Director Name Role Phone Boni Aguilar APRN - PROJECT ADMIN Primary Care Provider Reason for Visit * ReasonOnset DateCommentsMedication Xtqlxk3902/07/2025 Encounter Details DateTypeDepartmentCare Team (Latest Contact Info)Zbbtfsjibdo64/11/2025[facility] [place] [address] Boni Aguilar, TRAVELING CLERK [facility] [place], [place] [phone] Medication Refill Social History Tobacco UseTypesPacks/DayYears UsedDateSmoking Tobacco: Every PzcNsydrxwwhh52 Smokeless Tobacco: Never Comments:Patient has decreas ed smoking usage Alcohol UseStandard Drinks/WeekCommentsNot Currently0 (1 standard drink = 0.6 oz pure alcohol)[facility] UtilitiesAnswerDate RecordedIn the past 12 months has the electric, gas, oil, or water company threatened to shut off services in your home?No05/17/2024Overall Financial Resource Strain (CARDIA)AnswerDate Recorded How hard is it for you to pay for the very basics like food, housing, medical care, and heating?Not hard at all05/04/2023HQ-2AnswerDate RecordedPHQ-9 Total Smkzt371Hunger Vital SignAnswerDate RecordedWithin the past 12 months, [...] steady place to sleep or slept in [place] (including now)?No05/04/2023Housing Stability Vital SignAnswerDate RecordedIn the last 12 months, was there a time when you were not able to pay the mortgage or rent on time?No05/17/2024In the past 12 months, how many times have you moved where you were living? At any time in the past 12 months, were you homeless or living in a penitentiary (including now)?No05/17/2024Food InsecurityAnswerDate RecordedWithin the past 12 months, you worried that your food would run out before you got the money to buy more.Within the past 12 months, the food you bought just didn't last and you didn't have money to get more.CommentsNoSex and Gender InformationValueDate RecordedSex Assigned at BirthNot on fileLegal Sex Wftvyd3905/09/2012 4:09 PM ESTGender IdentityNot on fileSexual OrientationNot on filedocumented as of this encounter Plan of Treatment DateTypeDepartmentCare Team (Latest Contact Info)Mzmyvulrysb69/25/2025 1:00 PM ESTOffice Visit [facility] [address] [place] [address] Boni Aguilar, TRAVELING CLERK - PROJECT ADMIN [address] [place] [address] 3 month f/udocumented as of this encounter Visit Diagnoses Diagnosis Overweight (BMI 25.0-29.9) Overweight documented in this encounter Care Teams Team MemberRelationshipSpecialtyStart DateEnd Date Boni Aguilar, TRAVELING CLERK - PROJECT ADMIN PCP - General05/19/18documented as of this encounter
--- OUTSIDE RECORDS SUMMARY | 2025-02-10 09:01 | XMS_ITS | Encounter Summary ---
Author Organization [facility] Address [address], [address] [place] [address] Care Team Providers Care Online Activist Name Role Phone Boni Aguilar APRN - OVER SHORT AND DAMAGE CLERK Primary Care Provider Reason for Visit * ReasonOnset DateCommentsMedication Pcibcu9602/07/2025 Encounter Details DateTypeDepartmentCare Team (Latest Contact Info)Zyinohanyhg60/11/[address] [address] [place] [address] Boni Aguilar, PIANO CASE MAKER [facility] [address] [place], [place] [phone] Medication Refill Social History Tobacco UseTypesPacks/DayYears UsedDateSmoking Tobacco: Every ZujSjddoldttk34 Smokeless Tobacco: Never Comments:Patient has decreas ed smoking usage Alcohol UseStandard Drinks/WeekCommentsNot Currently0 (1 standard drink = 0.6 oz pure alcohol)[facility] UtilitiesAnswerDate RecordedIn the past 12 months has the electric, gas, oil, or water company threatened to shut off services in your home?No05/17/2024Overall Financial Resource Strain (CARDIA)AnswerDate Recorded How hard is it for you to pay for the very basics like food, housing, medical care, and heating?Not hard at all05/04/2023HQ-2AnswerDate RecordedPHQ-9 Total Upbxb853Hunger Vital SignAnswerDate RecordedWithin the past 12 months, [...] steady place to sleep or slept in [place] (including now)?No05/04/2023Housing Stability Vital SignAnswerDate RecordedIn the last 12 months, was there a time when you were not able to pay the mortgage or rent on time?No05/17/2024In the past 12 months, how many times have you moved where you were living? At any time in the past 12 months, were you homeless or living in a fci (including now)?No05/17/2024Food InsecurityAnswerDate RecordedWithin the past 12 months, you worried that your food would run out before you got the money to buy more.Within the past 12 months, the food you bought just didn't last and you didn't have money to get more.CommentsNoSex and Gender InformationValueDate RecordedSex Assigned at BirthNot on fileLegal Sex Epfojr4905/09/2012 4:09 PM ESTGender IdentityNot on fileSexual OrientationNot on filedocumented as of this encounter Plan of Treatment DateTypeDepartmentCare Team (Latest Contact Info)Jfxkswctycf47/25/2025 1:00 PM ESTOffice Visit [facility] [address] [place] [address] Boni Aguilar, PIANO CASE MAKER - OVER SHORT AND DAMAGE CLERK [address] [place] [address] 3 month f/udocumented as of this encounter Visit Diagnoses Diagnosis Chronic bilateral low back pain without sciatica documented in this encounter Care Teams Team MemberRelationshipSpecialtyStart DateEnd Date Boni Aguilar, PIANO CASE MAKER - OVER SHORT AND DAMAGE CLERK PCP - General05/19/18documented as of this encounter
--- OUTSIDE RECORDS SUMMARY | 2025-02-10 09:01 | XMS_ITS | Encounter Summary ---
Author Organization [facility] Address [address], [address] [place] [address] Care Team Providers Care Outcomes Specialist Name Role Phone Boni Aguilar APRN - CHIEF ELECTRICIAN Primary Care Provider Reason for Visit * ReasonOnset DateCommentsMedication Kmfplw5702/01/2025 Encounter Details DateTypeDepartmentCare Team (Latest Contact Info)Npmskmlnafx85/05/2025[facility] [address] [place] [address] Boni Aguilar, GYMNASTICS COACH OR INSTRUCTOR [facility] [address] [place], [place] [phone] Medication Refill Social History Tobacco UseTypesPacks/DayYears UsedDateSmoking Tobacco: Every QdkUdvclvsyfr22 Smokeless Tobacco: Never Comments:Patient has decreas ed smoking usage Alcohol UseStandard Drinks/WeekCommentsNot Currently0 (1 standard drink = 0.6 oz pure alcohol)[facility] UtilitiesAnswerDate RecordedIn the past 12 months has the electric, gas, oil, or water company threatened to shut off services in your home?No05/17/2024Overall Financial Resource Strain (CARDIA)AnswerDate Recorded How hard is it for you to pay for the very basics like food, housing, medical care, and heating?Not hard at all05/04/2023HQ-2AnswerDate RecordedPHQ-9 Total Hvxzb990Hunger Vital SignAnswerDate RecordedWithin the past 12 months, [...] steady place to sleep or slept in [place] (including now)?No05/04/2023Housing Stability Vital SignAnswerDate RecordedIn the [...] RecordedSex Assigned at BirthNot on fileLegal Sex Itsxdo9605/09/2012 4:09 PM ESTGender IdentityNot on fileSexual OrientationNot on filedocumented as of this encounter Plan of Treatment DateTypeDepartmentCare Team (Latest Contact Info)Qtwpkxozmzo99/25/2025 1:00 PM ESTOffice Visit [facility] [address] [place] [address] Boni Aguilar, GYMNASTICS COACH OR INSTRUCTOR - CHIEF ELECTRICIAN [address] [place] [address] 3 month f/udocumented as of this encounter Visit Diagnoses Diagnosis Chronic bilateral low back pain without sciatica documented in this encounter Care Teams Team MemberRelationshipSpecialtyStart DateEnd Date Boni Aguilar, GYMNASTICS COACH OR INSTRUCTOR - CHIEF ELECTRICIAN PCP - General05/19/18documented as of this encounter
--- OUTSIDE RECORDS SUMMARY | 2025-02-10 09:01 | XMS_ITS | Clinical Summary ---
Author Organization [facility] Address [address] [place] [address] Care Team Providers Care Rf Test Technician Name Role Phone Unavailable Primary Care Provider Unavailabl e Allergies Active AllergyReactionsCriticalityNoted DateCommentsDiclofenacHallucinations 05/17/20244404Pjtrxnnyn17/09/8234Kncxodpm55/19/6694JhmgqpuaHghafkw81/01/2011 Medications MedicationSigDispense QuantityRefillsLast FilledStart DateEnd DateStatus ALPRAZolam [...] DateDUB (dysfunctional uterine bleeding)01/11/2025 Pelvic pain in afrnxl6801/11/2025Menorrhagia with irregular cycle01/11/2025Neck pain01/02/2023 Encounters DateTypeDepartmentCare JyjmLohznqcbajd04/30/2025linisync Result Encounter [facility] Department Unsolicited Jesús Means DO 01/23/2025Orders Only [facility] [facility] [address] [place] [address] Dary Castaneda MA 01/11/2025 1:30 PM EDTProcedure Visit [facility] [address] [address] [place] [address] Jesús Measn DO DUB (dysfunctional uterine bleeding); Menorrhagia with irregular cycle; Pelvic pain in gsbzhr1801/11/2025Telephone [facility] [phone] Jesús Means DO 01/10/2025External Result Encounter [facility] External Department Unsolicited Jesús Means DO 12/06/2024 10:30 AM EDTConsult [facility] [address] [facility] [address] Jesús Means DO DUB (dysfunctional uterine bleeding); Dysmenorrhea; Menorrhagia with irregular cycle; PCOS (polycystic ovarian syndrome)12/06/2024amboo flowsheet [facility] [address] [place], [place] [address] [address] Jesús Means DO from Last 3 Months Family History Medical HistoryRelationNameCommentsAnxiety disorderMotherThroat cancerMother RelationNameStatusCommentsFatherAliveMotherAlive Social History Tobacco UseTypesPacks/DayYears UsedDateSmoking Tobacco: Every DayCigarettes Smokeless Tobacco: Never Tobacco Cessation:Ready to Q uit: Not Asked; Counseling Given: Not Answered Alcohol UseStandard Drinks/WeekCommentsYes0 (1 standard drink = 0.6 oz pure alcohol)CommentsNoSex and Gender InformationValueDate RecordedSex Assigned at BirthNot on fileLegal StkMbuntb78/15/2023 10:13 PM EDTGender IdentityNot on fileSexual OrientationNot on file Last Filed Vital Signs Vital SignReadingTime TakenCommentsBlood Dnbtznem131/8201/11/2025 1:51 PM EDT Pulse--Temperature--Respiratory Rate--Oxygen Saturation--Inhaled Oxygen Concentration--Cmwvqo67 kg (167 lb 8 oz)01/11/2025 1:51 PM EDTHeight--Body Mass Index-- Plan of Treatment DateTypeDepartmentCare Team (Latest Contact Info)Blftyafblpy24/24/2025 1:30 PM ESTOffice Visit [facility] [address] [facility] [address] Meagan Cedeno PA [address] [place] [address] [place] [address] Procedures Procedure NamePriorityDate/TimeAssociated DiagnosisCommentsXR CHEST 2V1 12:49 PM EDT ENDOMETRIAL ZEJUQHYmlvcep91/15/2025 2:11 PM EDT DUB (dysfunctional uterine bleeding) Menorrhagia with irregular cycle POCT , EOLNYWbhlzur51/15/2025 2:01 PM EDT DUB (dysfunctional uterine bleeding) Menorrhagia with irregular cycle Pelvic pain in female ENDOMETRIAL BIOPSY, KBVGSUKLKglizlu50/15/2025 12:00 AM EDT DEHYDROEPIANDROSTERONE, MHrfzknl59/14/2025 9:16 AM EDT HEMOGLOBIN H7WWjmlmdx88/14/2025 9:16 AM EDT FYOcntkyd06/14/2025 9:16 AM EDT YUAVubcziq28/14/2025 9:16 AM EDT QRVTjourbr89/14/2025 9:16 AM EDT DHEA KOKXIBTJppebfv30/14/2025 9:16 AM EDT SERUM B HCG, 3RD I.S. ([facility])Jenbqha1401/10/2025 9:16 AM EDT CBC WITH AUTO GQLYMPPRPCOJPhlswjg46/14/2025 9:16 AM EDT from Last 3 Months Results * XR CHEST 2V (01/26/2025 12:49 PM EDT)Anatomical RegionLateralityModalityOther Specimen (Source)Anatomical Location / LateralityCollection Method / Volume Collection TimeReceived Time01/26/2025 12:49 PM EDT Narrative 01/26/2025 12:52 PM EDT [facility] ?[address] ? [place] [address] ?XRay Report ? Signed ? Patient: BROWN,UBALDO J ? MR#: [id number] ?? : 1990 ?Acct:[id number] ?? Age/Sex: 35 / F ?ADM Date: 10/30/25 ?? Loc: PST ? Attending Dr: Jesús Means D.O. ? Ordering Physician: Jesús Means D.O. ?? Date of Service: 01/26/25 ?? Procedure(s): XR chest 2V ?? Accession Number(s): [id number] ? cc: Jesús Means D.O.; Physician,Non-Staff Brendon ? [facility] ? [address] ? [place] [address] ? Patient Name: ?? UBALDO REVELES ? MRN: [facility]:[id number] ? date: 1990 ?Sex: F ?? Assigned Patient Location: SURGOUT ?? Current Patient Location: SURGOUT ?? Accession/Order Number: [id number] ?? Exam Date: 01/26/2025 ??10:53 ?Report Date: 01/26/2025 ??12:49 ? At the request of: ?? JESÚS ??CLARY ??DO ? Procedure: ??XR chest 2V ? PA AND LATERAL CHEST: ? CLINICAL HISTORY: Preoperative clearance. ??Tobacco use. ? COMPARISON: None ? There is no focal parenchymal consolidation, effusion or pneumothorax. ?? The ?? cardiac, hilar and mediastinal silhouettes are within normal limits. ?? There ?? is no vascular congestion. ?? The visualized bony thorax is intact. ?? There is ?? subtle thoracolumbar dextroscoliotic curvature. ? XR/XR chest 2V ?? IMPRESSION: ? NO ACUTE CARDIOPULMONARY ABNORMALITY. ? Impression dictated by: Ashwini Leslie M.D. ??01/26/2025 12:49 PM ? Dictation Location: RADIO-PC-02 ? Electronically authenticated by: [id number] ??Y ?? Date: 01/26/2025 ??12:49 ? Dictated By: ?Ashwini Leslie M.D. ? Signed By: ?01/26/ 1252 ? DD/ 1249 ? TD/TT: ? Chief Design Engineer: Procedure Note Radiology, Radiologist, MD - 01/26/[address] [address] XRay Report Signed Patient: UBALDO REVELES JMR#: [id number] : 1990Acct:[id number] Age/Sex: 35 / FADM Date: 01/26/25 Loc: [facility] Attending Dr: Jesús Means D.O. Ordering Physician: Jesús Means D.O. Date of Service: 01/26/25 Procedure(s): XR chest 2V Accession Number(s): [id number] cc: Jesús Means D.O.; Physician,Non-Staff Brendon The [place] [id number] Patient Name: UBALDO REVELES MRN: [id number] date: 1990 Sex: F [facility] Accession/Order Number: [id number] Exam Date: 01/26/2025 10:53 Report Date: 01/26/2025 12:49 At the request of: JESÚS MEANS DO Procedure: XR chest 2V PA AND LATERAL CHEST: CLINICAL HISTORY: Preoperative clearance. Tobacco use. COMPARISON: None There is no focal parenchymal consolidation, effusion or pneumothorax.The cardiac, hilar and mediastinal silhouettes are within normal limits.There is no vascular congestion. The visualized bony thorax is intact. Thereis subtle thoracolumbar dextroscoliotic curvature. XR/XR chest 2V IMPRESSION: NO ACUTE CARDIOPULMONARY ABNORMALITY. Impression dictated by: Ashwini Leslie M.D. 01/26/2025 12:49 PM Dictation Location: [place] [address] Electronically authenticated by: [id number] Y Date: 2:49 Dictated By: Ashwini Leslie M.D. Signed By:01/26/25 1252 DD/ 1249 TD/TT: Chief Design Engineer: Authorizing ProviderResult TypeResult StatusCorey Clary DOCLINISYNC IMAGINGFinal Result * Endometrial biopsy (01/11/2025 2:11 PM EDT) Narrative Ashwini Duncan LPN - 01/11/2025 2:11 PM EDT Ashwini DuncanRORY 01/11/2025 2:54 PM Endometrial biopsy Date/Time: 01/11/2025 2:11 PM Performed by: Jesús Means DO Authorized by: Jesús Means DO ?? Consent: ??Consent obtained: written [...] well, no immediate complications Authorizing ProviderResult TypeResult StatusJesús Means DOIN CLINIC/BEDSIDE ORDERABLESFinal Result * POCT , urine manually resulted (01/11/2025 2:01 PM EDT)ComponentValue Ref RangeTest MethodAnalysis TimePerformed AtPathologist SignaturePreg Test, UrNegativeNegativeSpecimen (Source)Anatomical Location / LateralityCollection Method / VolumeCollection TimeReceived XkzrJwlew91/15/2025 2:01 PM EDT Narrative Authorizing ProviderResult TypeResult StatusJesús Means DOPOINT OF CARE TEST ENTER/EDIT ORDERABLESFinal Result * ENDOMETRIAL BIOPSY, EXTERNAL (01/11/2025 12:00 AM EDT) Narrative Authorizing ProviderResult TypeResult StatusJesús Means DOLAB CYTOLOGY ORDERABLESFinal ResultPerforming OrganizationAddressCity/State/ZIP CodePhone Number EXTERNAL LAB * DEHYDROEPIANDROSTERONE, S (01/10/2025 9:16 AM EDT)ComponentValueRef RangeTest MethodAnalysis TimePerformed AtPathologist SignatureDEHYDROEPIANDROSTERONE, S 3.4<10 ng/mLPROMEDICAComment: ADDITIONAL INFORMATION This test was developed and its performance characteristics determined by [facility] in a manner consistent with CLIA requirements. This test has not been cleared or approved by the U.S. Food and Drug Administration. Test Performed by: [facility] [address] [place] [address] Account Receivable Clerk: Ever Francis Ph.D.; CLIA# [id number] Specimen (Source)Anatomical Location / LateralityCollection Method / [...] trophoblastic or nontrophoblastic neoplasms. ?? PERFORMED AT [facility] [address],[place] [address] Specimen (Source)Anatomical Location / LateralityCollection Method / Volume Collection TimeReceived Time01/10/2025 9:16 AM EDT1 1:14 PM EDT Narrative Authorizing ProviderResult TypeResult StatusCorey Clary HEARD BLOOD ORDERABLES Final ResultPerforming OrganizationAddressCity/State/ZIP CodePhone Number [facility] * (ABNORMAL) CBC auto differential (01/10/2025 9:16 AM EDT)ComponentValueRef RangeTest MethodAnalysis TimePerformed AtPathologist SignatureWHITE BLOOD CELL COUNT, WBC10.14 - 11 x10E9/LPROMEDICARED BLOOD CELL COUNT, RBC4.583.8 - 5.2 X10E12/YZKMOOWPXIJBMXRWXSMM56.911.7 - 15.5 g/oATRCNSBIUKUQXPVDQQLX91.335 - 47 %PROMEDICAMEAN CELL VOLUME, FRO3046 - 100 fLPROMEDICAMEAN CELL HEMOGLOBIN, MCH 32.527 - 34 pgPROMEDICAMEAN CELL HEMOGLOGIN CONCENTRATION, MCHC34.432 - 36 g/dLPROMEDICARED CELL DISTRIBUTION WIDTH, RDW14.411.5 - 15 %PROMEDICAPLATELET OTUUT345413 - 450 X10E9/LPROMEDICAMEAN PLATELET VOLUME, MPV9.57 - 12 fL [facility]% ISJTHYLIXUS08.9%[facility]% ZEBEEGKFLPO08.8%[facility]% MONOCYTES8.2% [facility]% EOSINOPHILS1.5%[facility]% BASOPHILS0.6%PROMEDICAABSOLUTE NEUTROPHIL 7.3(H)1.5 - 6.6 10*3/uLPROMEDICAABSOLUTE LYMPHOCYTE1.71.0 - 3.5 10*3/uL PROM[facility]ICAABSOLUTE MONOCYTE0.80.0 - 0.9 10*3/uLPROMEDICAABSOLUTE EOSINOPHIL0.2 0.0 - 0.4 10*3/uLPROMEDICAABSOLUTE BASOPHIL0.10.0 - 0.2 10*3/uLPROMEDICA DIFFERENTIAL TYPEAUTOMATED DIFFERENTIALPROMEDICAComment: ?? PERFORMED AT [address],[place] [address] The copy-to physician of this order is ZAID Simms Specimen (Source)Anatomical Location / LateralityCollection Method / Volume Collection TimeReceived Time01/10/2025 9:16 AM EDT1 1:14 PM EDT Narrative Authorizing ProviderResult TypeResult StatusCorey Clary DOLAB BLOOD ORDERABLES Final ResultPerforming OrganizationAddressCity/State/ZIP CodePhone Number [facility] * DHEA-sulfate (01/10/2025 9:16 AM EDT)ComponentValueRef RangeTest Method Analysis TimePerformed AtPathologist SignatureDHEA I53904 - 266 ug/dLPROMEDICA Comment: ?? PERFORMED AT [address],[place] [address] Specimen (Source)Anatomical Location / LateralityCollection Method / Volume Collection TimeReceived Time01/10/2025 9:16 AM EDT1 1:14 PM EDT Narrative Authorizing ProviderResult TypeResult StatusCorey Clary DOLAB BLOOD ORDERABLES Final ResultPerforming OrganizationAddressCity/State/ZIP CodePhone Number [facility] * TSH (01/10/2025 9:16 AM EDT)ComponentValueRef RangeTest MethodAnalysis Time Performed AtPathologist SignatureFREE T41.100.61 - 1.60 ng/dLPROMEDICATSH1.26 0.49 - 4.67 uIU/mLPROMEDICAComment: ?? PERFORMED AT [address],[place] [address] Specimen (Source)Anatomical Location / LateralityCollection Method / [...] in vivo glycation rates are ??affected. AVERAGE MXMEIOB07av/dLPROMEDICAComment: ?? PERFORMED AT [facility] [address] [facility]. [address],[place] [address] Specimen (Source)Anatomical Location / LateralityCollection Method / Volume Collection TimeReceived Time01/10/2025 9:16 AM EDT1 1:14 PM EDT Narrative Authorizing ProviderResult TypeResult StatusCorey Clary [facility] BLOOD ORDERABLES Final ResultPerforming OrganizationAddressCity/State/ZIP CodePhone Number [facility] * Luteinizing hormone (01/10/2025 9:16 AM EDT)ComponentValueRef RangeTest Method Analysis TimePerformed AtPathologist SignatureLUTEINIZING ZAWQXXM83.0mIU/mL PROMEDICAComment: NORMAL FEMALE Follicular ?? 2.1-10.9 ??mIU/mL Mid Cycle ??19.2-103 ?? mIU/mL Luteal ?? 1.2-12.9 ??mIU/mL Post [place] ??10.9-58.6 ??mIU/mL ?? PERFORMED AT [address],[place] [address] Specimen (Source)Anatomical Location / LateralityCollection Method / Volume Collection TimeReceived Time01/10/2025 9:16 AM EDT1 1:14 PM EDT Narrative Authorizing ProviderResult TypeResult StatusCorey Clary DOLAB BLOOD ORDERABLES Final ResultPerforming OrganizationAddressCity/State/ZIP CodePhone Number [facility] * Follicle stimulating hormone (01/10/2025 9:16 AM EDT)ComponentValueRef Range Test MethodAnalysis TimePerformed AtPathologist SignatureFOLLICLE STIM HORMONE 8.3mIU/mLPROMEDICAComment: NORMAL FEMALE: Luteal ??1.8-5.1 ?mIU/mL Follicular ??3.8-8.8 ?mIU/mL Mid Cycle ??4.5-22.5 ?? mIU/mL Post [place] ??16.7-113.6 ??mIU/mL ?? PERFORMED AT [address],[place] [address] Specimen (Source)Anatomical Location / LateralityCollection Method / Volume Collection TimeReceived Time01/10/2025 9:16 AM EDT1 1:14 PM EDT Narrative Authorizing ProviderResult TypeResult StatusCorey Clary DOLAB BLOOD ORDERABLES Final ResultPerforming OrganizationAddressCity/State/ZIP CodePhone Number [facility] from Last 3 Months Insurance
[2025-02-10 09:09] LABS: Hematocrit 45.2 % (36.0-48.0); Hemoglobin 15.4 g/dL (12.0-16.0); Immature Granulocytes Abs Auto 0.02 10^3/uL (0.00-0.03); Immature Granulocytes Pct Auto 0.2 % (0.0-0.5); Lymphocytes Absolute Auto 2.1 10^3/uL (1.2-3.8); Mean Corpuscular HGB Conc 34.1 g/dL (29.9-35.2); Mean Corpuscular Hemoglobin 32.2 pg (26.7-34.0); Mean Corpuscular Volume 94.6 fL (81.0-99.0); Platelet Count 269 10^3/uL (150-450); Red Blood Count 4.78 10^6/uL (4.20-5.40); White Blood Count 8.1 10^3/uL (4.0-11.0)
[2025-02-10 09:29] VITALS: BMI 27.1
[2025-02-10 09:55] VITALS: BP 108/77; PULSE 70; TEMP 36.1; O2SAT 98
--- NOTE | 2025-02-10 10:35 | PM.ONB ---
Brief Operative Note Date of procedure: 02/10/25 Pre-op diagnosis general: menorrhagia Post-op diagnosis: same as pre-op Procedure: NAME OF PROCEDURE: [ ] Dorys endometrial ablation with hysteroscopy. PROCEDURE: The patient was taken back to the OR where she was prepped and draped in the normal sterile fashion after being placed in the dorsal lithotomy position, after being placed under general anesthesia without difficulty.? A weighted speculum was placed into the vagina. The anterior lip was grasped with a single tooth tenaculum. The patient was then sounded to approximated 8cm. The patient?s cervix was gently dilated using hegardilators. The hysteroscope was passed through the cervix into the uterus where both ostia were seen. No gross evidence of polyps, fibroids or malignancy. The cervical length was noted to be 4 cm. The total cavity length is 4cm.? The Dorys ablation apparatus was set to approximately 4cm in length. This was placed through the cervix and into the uterus. After the seal was tested, at that time the total ablation of 120 seconds was performed with the Dorys withoutdifficulty. All instruments were removed from the vagina. Excellent hemostasis noted.? Sponge and lap count correct times 2.? Patient taken to recovery in stable condition. Anesthesia: MAC Surgeon: Chinmay Means Estimated blood loss (mL): 5 Pathology: none sent Condition: stable Disposition: PACU Urinary Catheter Management Urinary Catheter Management Urethral: Cath placed during this visit: no
[2025-02-10 10:53] VITALS: BP 107/68; PULSE 72; TEMP 36.3; O2SAT 99
[2025-02-10 11:00] VITALS: BP 105/75; PULSE 68; O2SAT 96
[2025-02-10 11:15] VITALS: BP 99/66; PULSE 60; O2SAT 99
== END 2025-02-10 11:34 | disposition home or self-care (01) ==
LOC: SURGOUT 08:59
PROVIDERS: Visit Provider Obstetrics & Gynecology
PROC: (CPT 952; principal; 2025-02-10 10:15)
DX: N92.1 Excessive and frequent menstruation with irregular cycle (principal); N93.9 Abnormal uterine and vaginal bleeding, unspecified; Z98.51 Tubal ligation status; F17.210 Nicotine dependence, cigarettes, uncomplicated; K21.9 Gastro-esophageal reflux disease without esophagitis; G89.29 Other chronic pain; F41.9 Anxiety disorder, unspecified
CPT/HCPCS: 58563; 36415; 84702; 85025; J2003; J2250; J2405; J2704; J3010